=== PATIENT | male | born 1945 | race Caucasian/White ===

== ENCOUNTER 2016-06-12 15:10 | Inpatient (IN) | payer BC, MEDICARE ==
[~2016-06-12] VITALS: Ht 152.4 cm; Wt 70.0 kg
[~2016-06-12 15:10] MED LIST: AMLO10 PO; ATOR40TA16 PO; CARB200T PO; CLON2TAB PO; DONE10TA7 PO; GABA100C4 PO; METO-309 PO; MIRT45TA PO; PANT40TA3 PO; TAMS0.4C4 PO
[2016-06-12] MEDS ORDERED: GABA100C4 PO ×2 (15:27)
[2016-06-12] MEDS ORDERED: ZOLO50TA PO (15:27)
[2016-06-12 20:30] VITALS: BP 168/101; PULSE 85; RESP 17; TEMP 96.7; O2SAT 96
--- NOTE | 2016-06-12 21:35 | HHI.HP ---
[facility] Service [place] [place] [facility] Primary Care Physician Unknown Admission Diagnosis Diagnoses: Chief Complaint: Altered mental status and acute renal failure. Travel History International Travel<30 Days: No Contact w/Intl Traveler <30 Da: No Traveled to Known Affected Are: No History of Present Illness This is a 71-year-old male patient with past medical history which includes depression, BPH, hyperlipidemia, dementia, CAD status post coronary artery bypass graft. Patient is able to speak some Malian but mostly speaks Cypriot and a very poor historian. Initially admitted to psych unit for mood disorder and dementia. We were initially consulted for GI discomfort with nausea which has been going on for approximately 9 months to a year there is no change in this GI discomfort. Unremarkable findings. However today, patient had altered mental status, less responsive, blood work was done and showed acute renal failure. Per EMR charting, patient has not been eating in the last 3-4 days, has not been drinking. During that encounter, patient is awake, alert , response to noxious stimulus, positive response to visual threat. Not cooperative. Not in pain. Patient was then transferred to the hospital for further management. Review of Systems ROS Limitations: Altered Mental Status, Psychotic, Poor Historian Past Family Social History Past Medical History depression, BPH, hyperlipidemia, dementia, CAD status post coronary artery bypass graft Past Surgical History Coronary artery bypass graft there is a transverse right lower abdomen incision patient is unable to recall surgery Reported Medications Last Impressions Head CT 06/13/16 0000 Signed Impressions: Service Date/Time: Monday, June 13, 2016 03:29 - CONCLUSION: Normal examination for acute event. No hemorrhage or edema. Gab Baird MD Allergies: Coded Allergies: No Known Allergies (Unverified , 05/27/16) Family History Denies family medical history including diabetes hypertension or cancer Social History This is a 71-year-old male patient with past medical history which includes depression, BPH, hyperlipidemia, dementia, CAD status post coronary artery bypass graft. Patient is able to speak some Malian but mostly speaks Cypriot and reviewed with computer massage operator and information gathered from computerized chart. Patient does appear somewhat confused is able to describe GI discomfort with nausea which has been going on for approximately 9 months to a year there is no change in this GI discomfort. The pressure noted to be elevated ranging from 153/84-208/110. Hypertension start Norvasc 10 mg daily and clonidine as needed continue monitor vital signs GI discomfort/ nausea Protonix daily and Zofran as needed for nausea/vomiting BPH, hyperlipidemia, CAD and dementia continue patient's home medications these appear stable DVT prophylaxis patient ambulatory Discussed with patient RN and Dr. Redd Thank you for the consultation and for allowing us to participate in the care of this patient. Written by Lisa Owen, acting as scribe for Dr. Spann on 05/29/16 at 14:41. The documentation accurately reflects the work performed [id number] by me on 05/29/16 at 14:41 Physical Exam Physical Exam Not in distress PERRL, pink conjunctiva without injection, anicteric, sunken eyeballs. Appears dry. Nose without bleeding, airway patent Supple neck, no meningeal signs. Normal rate and regular rhythm, no murmurs gallops or rubs appreciated. Poor respiratory effort. Normal bowel sounds, soft, non-tender, nondistended, no guarding. Extremities without clubbing, cyanosis, or edema. No rash of generalized distribution. Awake, cannot evaluate orientation. Positive response to visual threat and noxious stimulus. No obvious cranial nerve deficits, pupils round, reactive to light. Muscle strength testing cannot be examined but arms drop slowly Almost catatonic Assessment and Plan Assessment and Plan This is a 71-year-old male patient with past medical history which includes depression, BPH, hyperlipidemia, dementia, CAD status post coronary artery bypass graft admitted to psych unit for dementia and mood disorder, admitted at the hospital for acute renal failure and altered mental status. Altered mental status-check CT scan of the head. Neurochecks, Acute renal failure-check input and output, start IVF, recheck BMP, urinalysis, CBC, ultrasound of the bladder and kidneys. Hypertension-restart Norvasc, metoprolol and clonidine as needed. Monitor. GI discomfort-Protonix daily, Zofran Tums and simethicone as needed BLE pain consistent with neuropathy-hold gabapentin and tramadol for now. BPH, hyperlipidemia, CAD and dementia continue patient's home medications these appear stable DVT prophylaxis: Lovenox Physician Certification 2 Midnight Certification Type: Admission for Inpatient Services Order for Inpatient Services The services are ordered in accordance with Medicare regulations or non- Medicare payer requirements, as applicable. In the case of services not specified as inpatient-only, they are appropriately provided as inpatient services in accordance with the 2-midnight benchmark. Estimated LOS (days): 2 days is the estimated time the patient will need to remain in the hospital, assuming treatment plan goals are met and no additional complications. Post-Hospital Plan: Other (specify) (psychiatry) Abdulkadir Spann MD Jun 12, 2016 21:35 DVT prophylaxis patient ambulatory Discuss with patient, RN Physician Certification Order for Inpatient Services The services are ordered in accordance with Medicare regulations or non- Medicare payer requirements, as applicable. In the case of services not specified as inpatient-only, they are appropriately provided as inpatient services in accordance with the 2-midnight benchmark. days is the estimated time the patient will need to remain in the hospital, assuming treatment plan goals are met and no additional complications. Abdulkadir Spann MD Jun 12, 2016 21:35
[2016-06-12] MEDS: DONEPEZIL HCL 5 MG TAB PO SCH (21:39)
[2016-06-12] MEDS ORDERED: GABAPENTIN 100 MG CAP PO SCH (21:40)
[2016-06-12] MEDS: METOPROLOL TARTRATE 50 MG TAB PO SCH (21:40)
[2016-06-12] MEDS: ATORVASTATIN 40 MG TAB PO SCH (21:45)
[2016-06-12] MEDS: SODIUM CHLOR 0.9% 1000 ML INJ 1,000 ML IV SCH (22:58)
[2016-06-12 23:00] VITALS: BP 194/110; PULSE 84; RESP 18; TEMP 97; O2SAT 96
[2016-06-12] MEDS: ENALAPRILAT 1.25 MG/ML VIAL IV PUSH PRN (23:21)
[2016-06-13] VITALS: BP 107/69
[2016-06-13 04:00] VITALS: BP 107/59; PULSE 70; RESP 17; TEMP 97.1; O2SAT 95
--- NOTE | 2016-06-13 04:16 | RADRPT ---
EXAM DATE/TIME: 06/13/2016 03:29 [facility] COMPARISON: No previous studies available for comparison. INDICATIONS : Altered mental status today. RADIATION DOSE: 56.35 CTDIvol (mGy) MEDICAL HISTORY : Dementia. Cardiovascular disease SURGICAL HISTORY : CABG ENCOUNTER: Initial ACUITY: 1 day PAIN SCALE: 0/10 LOCATION: cranial TECHNIQUE: Multiple contiguous axial images were obtained of the head. Using automated exposure control and adj ustment of the mA and/or kV according to patient size, radiation dose was kept as low as reasonably a chievable to obtain optimal diagnostic quality images. FINDINGS: CEREBRUM: The ventricles are normal for age. No evidence of midline shift, mass lesion, hemorrhage or acute in farction. No extra-axial fluid collections are seen. There are a few old lacunar strokes in the left external capsule. POSTERIOR FOSSA: The cerebellum and brainstem are intact. The 4th ventricle is midline. The cerebellopontine angle i s unremarkable. EXTRACRANIAL: The visualized portion of the orbits is intact. SKULL: The calvaria is intact. No evidence of skull fracture. CONCLUSION: Normal examination for acute event. No hemorrhage or edema. Gab Baird MD on June 13, 2016 at 4:13 Board Certified Radiologist. This report was verified electronically.
[2016-06-13] MEDS: SODIUM CHLOR 0.9% 1000 ML INJ 1,000 ML IV SCH ×3 (05:38→21:55)
[2016-06-13 08:00] VITALS: BP 130/61; PULSE 69; RESP 16; TEMP 97.2; O2SAT 98
[2016-06-13 08:12] LABS: BICARBONATE 20.7 MEQ/L (21.0-32.0); POTASSIUM 4.3 MEQ/L (3.5-5.1)
[2016-06-13 08:36] LABS: AUTOMATED NEUTROPHIL # 8.7 TH/MM3 (1.8-7.7); BASOPHIL # 0.1 TH/MM3 (0-0.2); BASOPHIL % 0.5 % (0.0-2.0); EOSINOPHIL # 0.1 TH/MM3 (0-0.4); EOSINOPHIL % 0.7 % (0.0-4.0); HEMATOCRIT 46.6 % (39.0-51.0); HEMO FLAGS DIFF FINAL; LYMPH % 9.8 % (9.0-44.0); LYMPHOCYTE # 1.1 TH/MM3 (1.0-4.8); MEAN CELL VOLUME 95.6 FL (80.0-100.0); MEAN CORPUSCULAR HEMOGLOBIN 31.7 PG (27.0-34.0); MEAN CORPUSCULAR HGB CONC 33.1 % (32.0-36.0); MONO % 9.7 % (0.0-8.0); NEUT % 79.3 % (16.0-70.0); PLATELET COUNT 143 TH/MM3 (150-450); RED BLOOD COUNT 4.87 MIL/MM3 (4.50-5.90); RED CELL DISTRIBUTION WIDTH 13.4 % (11.6-17.2); WHITE BLOOD COUNT 10.9 TH/MM3 (4.0-11.0)
[2016-06-13] MEDS: METOPROLOL TARTRATE 50 MG TAB PO SCH ×2 (09:00→21:00)
[2016-06-13] MEDS: PANTOPRAZOLE SOD 40 MG DELAYED RELEASE TAB PO SCH (09:00)
[2016-06-13] MEDS ORDERED: GABAPENTIN 100 MG CAP PO SCH (09:00)
[2016-06-13] MEDS: carBAMazepine 200 MG TAB PO SCH ×3 (09:00→17:03)
--- NOTE | 2016-06-13 10:40 | HHI.PR ---
Subjective Remarks Follow-up for altered mental status and renal failure Still nonresponsive, almost catatonic, no meaningful history can be taken from the patient. Objective Vitals Vital Signs Date Time Temp Pulse Resp B/P Pulse Ox O2 Delivery O2 Flow Rate FiO2 06/13/16 08:00 97.2 69 16 130/61 98 06/13/16 04:00 97.1 70 17 107/59 95 06/13/16 00:00 107/69 06/12/16 23:00 97.0 84 18 194/110 96 06/12/16 20:30 96.7 85 17 168/101 96 I/O 06/12/16 06/12/16 06/12/16 06/13/16 06/13/16 06/13/16 07:00 15:00 23:00 07:00 15:00 23:00 Intake Total 40 ml 875 ml Balance 40 ml 875 ml Intake Oral 40 ml IV Total 875 ml # Voids 1 1 Result Diagram: 06/13/16 0701 06/13/16 0701 Objective Remarks Not in distress PERRL, pink conjunctiva without injection, anicteric, sunken eyeballs. Appears dry. Nose without bleeding, airway patent Supple neck, no meningeal signs. Normal rate and regular rhythm, no murmurs gallops or rubs appreciated. Poor respiratory effort. Normal bowel sounds, soft, non-tender, nondistended, no guarding. Extremities without clubbing, cyanosis, or edema. No rash of generalized distribution. Awake, cannot evaluate orientation. Positive response to visual threat and noxious stimulus. No obvious cranial nerve deficits, pupils round, reactive to light. Muscle strength testing cannot be examined but arms drop slowly Almost catatonic A/P Assessment and Plan This is a 71-year-old male patient with past medical history which includes depression, BPH, hyperlipidemia, dementia, CAD status post coronary artery bypass graft admitted to psych unit for dementia and mood disorder, discharged, admitted at the hospital for acute renal failure and altered mental status. Altered mental status -CT scan of the head unremarkable, check MRI of the head, check EEG, check Tegretol levels, check ammonia. Acute renal failure-continue IVF, increased rate, recheck BMP tomorrow, check CK today, check urinalysis, awaiting ultrasound of the bladder and kidneys, consult nephrology. Likely secondary to hypovolemia from poor oral intake, monitor. Hold gabapentin. Baseline creatinine is around 1.2. Now at 3. Hypertension- continue Norvasc, metoprolol and clonidine as needed. Monitor. GI discomfort-Protonix daily, Zofran Tums and simethicone as needed BLE pain consistent with neuropathy-hold gabapentin and tramadol for now. BPH, hyperlipidemia, CAD and dementia continue patient's home medications these appear stable DVT prophylaxis: Heparin Abdulkadir Spann MD Jun 13, 2016 10:40
[2016-06-13 12:00] VITALS: BP 141/67; PULSE 66; RESP 18; TEMP 97.2; O2SAT 97
[2016-06-13 13:02] LABS: CREATINE KINASE 59 U/L (39-308)
[2016-06-13 13:16] LABS: BLOOD, URINE NEG (NEG); GLUCOSE,URINE NEG (NEG); HYALINE CAST, URINE 20 /lpf (RARE); KETONE, URINE TRACE mg/dL (NEG); MUCUS URINE FEW /lpf (OCC); NITRITE,URINE NEG (NEG); SQUAMOUS EPITHELIAL CELL URINE <1 /hpf (0-5); URINE COLOR YELLOW (YELLW/STRAW)
[2016-06-13 13:18] LABS: COMMENT (UR) CATH-CULT NOT IND; CULTURE IF INDICATED CATH CULTURE NOT IND
--- NOTE | 2016-06-13 13:38 | PD.CONS ---
HPI Service Nephrology Consult Requested By Dr. Spann Reason for Consult Acute renal failure Primary Care Physician Unknown History of Present Illness Patient is a 71-year-old [place] man who speaks no Uzbek, he was admitted to the psychiatric unit and has been doing poorly and altered mental status, he' s not eating and drinking and he has progressive renal failure time of admission his creatinine was 1.16 and is progressively gotten worse to 3.04. Patient is unable to provide any history. Review of Systems ROS Limitations: Clinical Condition Past Family Social History Allergies: Coded Allergies: No Known Allergies (Unverified , 05/27/16) Past Medical History Hypertension Coronary artery disease CABG Hyperlipidemia Dementia Past Surgical History CABG Reported Medications Reported Meds & Active Scripts Active Zoloft (Sertraline HCl) 50 Mg Tab 50 Mg PO HS 0 Days Gabapentin 100 Mg Cap 200 Mg PO HS 0 Days Gabapentin 100 Mg Cap 100 Mg PO BID 0 Days Norvasc (Amlodipine Besylate) 10 Mg Tab 10 Mg PO DAILY 30 Days Pantoprazole (Pantoprazole Sodium) 40 Mg Tab 40 Mg PO DAILY 30 Days Lopressor (Metoprolol Tartrate) 50 Mg Tab 50 Mg PO Q12HR 30 Days Reported Atorvastatin (Atorvastatin Calcium) 40 Mg Tab 40 Mg PO HS Tamsulosin (Tamsulosin HCl) 0.4 Mg Cap 0.4 Mg PO HS Donepezil 10 Mg Tab 10 Mg PO HS Carbamazepine 200 Mg Tab 200 Mg PO TID Active Ordered Medications Current Medications Medications (Trade) Dose Ordered Sig/Geovanni Route Start Time Stop Time Status Last Admin (NS 1000 ml Inj) 1,000 ml @ 150 mls/hr Q6H40M IV 06/12/16 21:30 06/13/16 05:38 (Norvasc) 10 mg DAILY PO 06/13/16 09:00 (Lipitor) 40 mg HS PO 06/12/16 21:45 (TEGretol) 200 mg TID PO 06/13/16 09:00 (Aricept) 10 mg HS PO 06/12/16 21:39 (Neurontin) 100 mg BID PO 06/13/16 09:00 Hold (Neurontin) 200 mg HS PO 06/12/16 21:40 Hold (Lopressor) 50 mg Q12HR PO 06/12/16 21:40 (Protonix) 40 mg DAILY PO 06/13/16 09:00 (Zoloft) 50 mg HS PO 06/13/16 21:00 (Flomax) 0.4 mg HS PO 06/13/16 21:00 (Vasotec Inj) 1.25 mg Q6H PRN IV PUSH 06/12/16 23:15 06/12/16 23:21 Family History Noncontributory Social History Previous history of smoking Physical Exam Vital Signs Vital Signs Date Time Temp Pulse Resp B/P Pulse Ox O2 Delivery O2 Flow Rate FiO2 06/13/16 08:00 97.2 69 16 130/61 98 06/13/16 04:00 97.1 70 17 107/59 95 06/13/16 00:00 107/69 06/12/16 23:00 97.0 84 18 194/110 96 06/12/16 20:30 96.7 85 17 168/101 96 Physical Exam GENERAL: Dehydrated ill-appearing patient. SKIN: Warm and dry. HEAD: Normocephalic. EYES: No scleral icterus. No injection or drainage. NECK: Supple, trachea midline. No JVD or lymphadenopathy. CARDIOVASCULAR: Regular rate and rhythm without murmurs, gallops, or rubs. RESPIRATORY: Breath sounds equal bilaterally. No accessory muscle use. GASTROINTESTINAL: Abdomen soft, non-tender, nondistended. EXTREMITIES: No cyanosis, or edema. NEUROLOGICAL: Awake, unable to provide information or talk Laboratory Laboratory Tests Test 06/13/16 06/13/16 06/13/16 07:01 11:50 12:20 White Blood Count 10.9 Red Blood Count 4.87 Hemoglobin 15.4 Hematocrit 46.6 Mean Corpuscular Volume 95.6 Mean Corpuscular Hemoglobin 31.7 Mean Corpuscular Hemoglobin 33.1 Concent Red Cell Distribution Width 13.4 Platelet Count 143 Mean Platelet Volume 9.7 Neutrophils (%) (Auto) 79.3 Lymphocytes (%) (Auto) 9.8 Monocytes (%) (Auto) 9.7 Eosinophils (%) (Auto) 0.7 Basophils (%) (Auto) 0.5 Neutrophils # (Auto) 8.7 Lymphocytes # (Auto) 1.1 Monocytes # (Auto) 1.1 Eosinophils # (Auto) 0.1 Basophils # (Auto) 0.1 CBC Comment DIFF FINAL Differential Comment Hematology Comments Sodium Level 142 Potassium Level 4.3 Chloride Level 109 Carbon Dioxide Level 20.7 Anion Gap 12 Blood Urea Nitrogen 81 Creatinine 3.04 Estimat Glomerular Filtration 20 Rate Random Glucose 107 Calcium Level 8.9 Ammonia LESS THAN 10 Total Creatine Kinase 59 Carbamazepine (Tegretol) Level LESS THAN 0.5 Urine Color YELLOW Urine Turbidity CLEAR Urine pH 5.0 Urine Specific [place]ems 1.019 Urine Protein TRACE Urine Glucose (UA) NEG Urine Ketones TRACE Urine Occult Blood NEG Urine Nitrite NEG Urine Bilirubin NEG Urine Urobilinogen LESS THAN 2.0 Urine Leukocyte Esterase NEG Urine RBC LESS THAN 1 Urine WBC LESS THAN 1 Urine Squamous Epithelial <1 Cells Urine Hyaline Casts 20 Urine Mucus FEW Microscopic Urinalysis Comment CATH-CULT NOT IND Result Diagram: 06/13/16 0701 06/13/16 0701 Imaging Last Impressions Head CT 06/13/16 0000 Signed Impressions: Service Date/Time: Monday, June 13, 2016 03:29 - CONCLUSION: Normal examination for acute event. No hemorrhage or edema. Gab Baird MD Assessment and Plan Problem List: (1) Acute renal failure Plan: Patient needs hydration and he appears to be dehydrated and unable to take care of himself. MRI of the brain is ordered an ultrasound of the kidney' s kidney function were normal last month and we will continue to monitor with hydration it should improve. (2) Dehydration Plan: Needs IV hydration (3) Dementia, senile with depression Plan: Etiology been worked up MRI has been ordered (4) HTN (hypertension) Plan: Monitor blood pressure while in the hospital (5) Mood disorder Plan: He was seen by psychiatrist Mickey Rivera MD Jun 13, 2016 13:38
[2016-06-13 16:00] VITALS: BP 165/85; PULSE 130; RESP 16; TEMP 97.4; O2SAT 93
[2016-06-13] MEDS ORDERED: HALOPERIDOL LACTATE 5 MG/ML AMP IM ONE ×2 (16:45→22:45)
[2016-06-13 20:00] VITALS: BP 169/75; PULSE 77; RESP 16; TEMP 97; O2SAT 95
[2016-06-13] MEDS: DONEPEZIL HCL 5 MG TAB PO SCH (21:00)
[2016-06-13] MEDS: ATORVASTATIN 40 MG TAB PO SCH (21:00)
[2016-06-13] MEDS: TAMSULOSIN HCL 0.4 MG CAP PO SCH (21:00)
[2016-06-13] MEDS: SERTRALINE HCL 50 MG TAB PO SCH (21:00)
--- NOTE | 2016-06-13 22:02 | RADRPT ---
EXAM DATE/TIME: 06/13/2016 21:21 [facility] COMPARISON: No previous studies available for comparison. INDICATIONS : ARF. MEDICAL HISTORY : BPH. Dementia. CAD. SURGICAL HISTORY : CABG. ENCOUNTER: Initial ACUITY: 3 days PAIN SCORE: Nonresponsive. LOCATION: Bilateral flank MEASUREMENTS: RIGHT KIDNEY: 10.6 x 4.7 x 5.8 cm LEFT KIDNEY: 11.5 x 3.7 x 6.4 cm FINDINGS: RIGHT KIDNEY: The kidney is normal in size and shape. It is mildly echogenic. No hydronephrosis or mass. LEFT KIDNEY: The kidney is normal in size and shape. It is mildly echogenic. No hydronephrosis or mass. BLADDER: Within normal limits given the degree of distension. A Persaud balloon present within the urinary bladd er. CONCLUSION: Mildly echogenic kidneys consistent with underlying medical renal disease. No obstruction. Jl Hernández Jr., MD on June 13, 2016 at 21:59 Board Certified Radiologist. This report was verified electronically.
[2016-06-14] VITALS (11 sets, daily range): BP systolic 146–194; BP diastolic 67–92; PULSE 53–117; RESP 16–20; TEMP 97–98.5; O2SAT 94–97
[2016-06-14] MEDS: SODIUM CHLOR 0.9% 1000 ML INJ 1,000 ML IV SCH ×2 (05:02→22:32)
[2016-06-14] MEDS: ENALAPRILAT 1.25 MG/ML VIAL IV PUSH PRN (08:07)
[2016-06-14 08:30] LABS: BICARBONATE 20.5 MEQ/L (21.0-32.0); POTASSIUM 3.8 MEQ/L (3.5-5.1)
[2016-06-14] MEDS: carBAMazepine 200 MG TAB PO SCH ×3 (09:00→18:00)
[2016-06-14] MEDS: METOPROLOL TARTRATE 50 MG TAB PO SCH ×2 (09:00→22:30)
[2016-06-14] MEDS: PANTOPRAZOLE SOD 40 MG DELAYED RELEASE TAB PO SCH (09:00)
--- NOTE | 2016-06-14 12:40 | HHI.PR ---
Subjective Remarks f/u HTN, ARF patient hypertensive overnight, SBP >200s, still catatonic, very poor historian , still responds to visual threat. Also became combative last night, although made the patient more calm Objective Vitals Vital Signs Date Time Temp Pulse Resp B/P Pulse Ox O2 Delivery O2 Flow Rate FiO2 06/14/16 11:46 178/88 06/14/16 07:50 97.4 71 20 194/92 97 06/14/16 04:00 97.0 70 16 150/67 96 06/14/16 00:00 97.9 99 18 157/68 94 06/13/16 20:00 97.0 77 16 169/75 95 06/13/16 16:00 97.4 130 16 165/85 93 I/O 06/13/16 06/13/16 06/13/16 06/14/16 06/14/16 06/14/16 07:00 15:00 23:00 07:00 15:00 23:00 Intake Total 875 ml 1134 ml 1025 ml 1000 ml Output Total 600 ml 350 ml 500 ml Balance 875 ml 534 ml 675 ml 500 ml Intake Oral 25 ml 0 ml IV Total 875 ml 1134 ml 1000 ml 1000 ml Output Urine Total 600 ml 350 ml 500 ml # Voids 1 # Bowel Movements 0 0 Result Diagram: 06/13/16 0701 06/14/16 0703 Objective Remarks Not in distress PERRL, pink conjunctiva without injection, anicteric, sunken eyeballs. Appears dry. Nose without bleeding, airway patent Supple neck, no meningeal signs. Normal rate and regular rhythm, no murmurs gallops or rubs appreciated. Poor respiratory effort. Normal bowel sounds, soft, non-tender, nondistended, no guarding. Extremities without clubbing, cyanosis, or edema. No rash of generalized distribution. Awake, cannot evaluate orientation. Positive response to visual threat and noxious stimulus. No obvious cranial nerve deficits, pupils round, reactive to light. Muscle strength testing cannot be examined but arms drop slowly Almost catatonic A/P Assessment and Plan This is a 71-year-old male patient with past medical history which includes depression, BPH, hyperlipidemia, dementia, CAD status post coronary artery bypass graft admitted to psych unit for dementia and mood disorder, discharged, admitted at the hospital for acute renal failure and altered mental status. Altered mental status -CT scan of the head unremarkable, check MRI of the head, check EEG, these are pending, terbutaline will start low, will load with Tegretol. Ammonia is normal. Acute renal failure-continue IVF, better, decreased IVF rate, recheck BMP tomorrow, CK urinalysis within normal limits. Ultrasound of the kidney showed echogenic kidneys suggestive of medical renal disease. Nephrology following. Agreed with diagnosis. Hypokalemia likely secondary to poor oral intake. Hold gabapentin. Baseline creatinine is around 1.2. 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 We 'll give hydralazine IV, transferred to [facility], nicardipine drip. Mood disorder-consult psychiatry, Haldol when necessary. GI discomfort-Protonix daily, Zofran Tums and simethicone as needed BLE pain consistent with neuropathy-hold gabapentin and tramadol for now. BPH, hyperlipidemia, CAD and dementia continue patient's home medications these appear stable DVT prophylaxis: Heparin Abdulkadir Spann MD Jun 14, 2016 12:40
[2016-06-14] MEDS ORDERED: LORazepam 2 MG/ML VIAL IV PUSH PRN (12:45)
[2016-06-14] MEDS: hydrALAZINE HCL 20 MG/ML VIAL IV PUSH PRN (13:49)
[2016-06-14] MEDS: niCARdipine INJ 25 MG in SODIUM CHLOR 0.9% 250 ML INJ 250 ML IV SCH ×4 (13:50→22:31)
--- NOTE | 2016-06-14 15:45 | HHI.NPPN ---
Subjective History of Present Illness 71 year old he refuses eating and do not take medication Became Hypertensive, he is not talking catatonic Objective Data Data 06/13/16 06/14/16 19:00 07:00 Intake Total 1134 ml 2025 ml Output Total 600 ml 850 ml Balance 534 ml 1175 ml Intake Oral 25 ml IV Total 1134 ml 2000 ml Output Urine Total 600 ml 850 ml # Bowel Movements 0 Vital Signs Date Time Temp Pulse Resp B/P Pulse Ox O2 Delivery O2 Flow Rate FiO2 06/14/16 11:50 97.7 68 20 176/82 96 06/14/16 11:46 178/88 06/14/16 07:50 97.4 71 20 194/92 97 06/14/16 04:00 97.0 70 16 150/67 96 06/14/16 00:00 97.9 99 18 157/68 94 06/13/16 20:00 97.0 77 16 169/75 95 06/13/16 16:00 97.4 130 16 165/85 93 -: 06/13/16 0701 06/14/16 0703 Physical Exam General Appearance: Well Developed Neck Neck Exam: Neck Supple Pulmonary Resp Exam: Clear Bilaterally Cardiology CV Exam: Regular, Normal Sinus Rhythm Gastrointestinal/Abdomen GI Exam: Soft, Non-Tender, Bowel Sounds Present Extremeties Extremities Exam: No Edema Assessment/Plan Problem List: (1) Acute renal failure Plan: Patient is on hydration and Cr declined to 1.38 and unable to take care of himself. Cardene drip started as not taking oral medications US kidney Mildly echogenic kidney normal for a Patient with hypertension and his age NGT will be attempted (2) Dehydration Plan: Needs IV hydration (3) Dementia, senile with depression Plan: Etiology been worked up CT scan head negative (4) HTN (hypertension) Plan: on Cardene need NGT Monitor blood pressure while in the hospital (5) Mood disorder Plan: He was seen by psychiatrist Mickey Rivera MD Jun 14, 2016 15:45
--- NOTE | 2016-06-14 19:34 | MG ---
cc: REBA WILLIAMSON Lab No: Date: Age: Sex: M Race: ELECTROENCEPHALOGRAM NUMBER [id number] INTRODUCTION A 71-year-old man. Hyperventilation not performed. Less responsive. Haldol. DESCRIPTION A diffuse 6-7 Hz rhythm is noted to 60 microvolts. Right temporal muscle artifact is seen. At times there is a lot of muscle artifact which makes interpretation difficult. Bottom jaw was quivering. A lot of mouth movement. Some small sharps appear over the right posterior temporal head region at epoch 85 on the bipolar montage and then he has some eye fluttering. Photic stimulation was performed without significant posterior driving. He is noted to fall asleep and snore but does not reach stage II sleep. IMPRESSION There may possibly be a seizure focus over the right central, right temporal head region at epoch 85. A lesion there should be ruled out. Clinical correlation is needed. MD VIKTORIA Sweet/MARIE /6:48 PM /7:27 PM
[2016-06-14] MEDS: ATORVASTATIN 40 MG TAB PO SCH (22:30)
[2016-06-14] MEDS: DONEPEZIL HCL 5 MG TAB PO SCH (22:31)
[2016-06-14] MEDS: TAMSULOSIN HCL 0.4 MG CAP PO SCH (22:31)
[2016-06-14] MEDS ORDERED: ARTIFICIAL TEARS OPTH SOLN 15 ML BTL EACH EYE PRN (23:15)
[2016-06-15] VITALS (20 sets, daily range): BP systolic 123–160; BP diastolic 62–84; PULSE 68–150; RESP 18–20; TEMP 95.1–98.8; O2SAT 88–99
[2016-06-15] MEDS: hydrALAZINE HCL 20 MG/ML VIAL IV PUSH PRN (03:26)
[2016-06-15] MEDS: ENALAPRILAT 1.25 MG/ML VIAL IV PUSH PRN (04:52)
[2016-06-15 05:26] LABS: POTASSIUM 3.9 MEQ/L (3.5-5.1)
[2016-06-15] MEDS ORDERED: FUROSEMIDE 40 MG/4 ML VIAL IV PUSH ONE (08:00)
--- NOTE | 2016-06-15 08:34 | RADRPT ---
EXAM DATE/TIME: 06/15/2016 07:47 [facility] COMPARISON: No previous studies available for comparison. INDICATIONS : Shortness of breath. MEDICAL HISTORY : None. SURGICAL HISTORY : None. ENCOUNTER: Initial ACUITY: 3 days PAIN SCORE: Non-responsive. LOCATION: chest FINDINGS: There is a focal infiltrate in the left lung base. The right lung is clear. There are no pleural effu sions or pulmonary edema. The heart size is within normal limits. There is evidence of previous cardi othoracic surgery. The bony structures are grossly intact. CONCLUSION: Left lower lung infiltrate. Cricket Perez MD on June 15, 2016 at 8:31 Board Certified Radiologist. This report was verified electronically.
[2016-06-15] MEDS: PANTOPRAZOLE SOD 40 MG DELAYED RELEASE TAB PO SCH (09:00)
[2016-06-15] MEDS: NYSTATIN SUSP 500,000 U/5 ML CUP SWISH-SWAL SCH ×4 (09:00→21:17)
[2016-06-15] MEDS: carBAMazepine 200 MG TAB PO SCH ×3 (09:00→17:16)
[2016-06-15] MEDS ORDERED: Vancomycin Consult Pharmacy 1 EA OTHER SCH (09:30)
[2016-06-15] MEDS: PIPERACIL-TAZO 3.375 GM PREMIX 50 ML IV SCH ×3 (09:50→21:06)
[2016-06-15] MEDS: HALOPERIDOL LACTATE 5 MG/ML AMP IM PRN (10:13)
[2016-06-15] MEDS ORDERED: RESP: ALBUTEROL 2.5 MG/IPRATROPIUM 0.5 MG NEB (PRN) NEB (11:30)
--- NOTE | 2016-06-15 11:33 | HHI.PR ---
Subjective Remarks Follow-up on hypertension, altered mental status Feeding tube insertion attempted last night but was not able to. Patient might try to take his medications. No overnight events. Mental status is a little better better, not catatonic today but still does not follow any commands, appears very confused. Had an episode of desaturation and needed to be placed on oxygen. Poor historian Objective Vitals Vital Signs Date Time Temp Pulse Resp B/P Pulse Ox O2 Delivery O2 Flow Rate FiO2 06/15/16 09:06 96 Nasal Cannula 6.00 06/15/16 07:00 88 Nasal Cannula 5.00 06/15/16 06:45 90 Nasal Cannula 6.00 06/15/16 06:30 89 Nasal Cannula 6.00 06/15/16 06:14 88 Nasal Cannula 4.00 06/15/16 06:00 86 Room Air 06/15/16 04:00 91 Room Air 06/15/16 04:00 95.1 91 18 155/71 91 06/15/16 03:00 80 06/15/16 00:00 94 Room Air 06/15/16 00:00 98.8 70 18 123/62 91 06/14/16 23:00 100 06/14/16 20:00 95 Room Air 06/14/16 20:00 98.5 97 18 146/68 97 06/14/16 19:00 117 06/14/16 18:00 110 06/14/16 16:00 97.2 107 20 146/67 94 06/14/16 16:00 107 06/14/16 13:25 53 06/14/16 13:25 97.5 53 20 179/86 96 06/14/16 11:50 97.7 68 20 176/82 96 06/14/16 11:46 178/88 I/O 06/14/16 06/14/16 06/14/16 06/15/16 06/15/16 06/15/16 07:00 15:00 23:00 07:00 15:00 23:00 Intake Total 1000 ml 2008 ml 1885 ml Output Total 500 ml 800 ml 750 ml 1200 ml Balance 500 ml -800 ml 1258 ml 685 ml Intake Oral 0 ml 0 ml 25 ml IV Total 1000 ml 2008 ml 1860 ml Output Urine Total 500 ml 800 ml 750 ml 1200 ml # Bowel Movements 0 0 0 Result Diagram: 06/13/16 0701 06/15/16 0456 Imaging Last Impressions Chest X-Ray 06/15/16 0000 Signed Impressions: Service Date/Time: Wednesday, June 15, 2016 07:47 - CONCLUSION: Left lower lung infiltrate. Cricket Perez MD Renal Ultrasound 06/13/16 0000 Signed Impressions: Service Date/Time: Monday, June 13, 2016 21:21 - CONCLUSION: Mildly echogenic kidneys consistent with underlying medical renal disease. No obstruction. Jl Hernández Jr., MD Head CT 06/13/16 0000 Signed Impressions: Service Date/Time: Monday, June 13, 2016 03:29 - CONCLUSION: Normal examination for acute event. No hemorrhage or edema. Gab Baird MD Objective Remarks Not in distress PERRL, pink conjunctiva without injection, anicteric Nose without bleeding, airway patent Supple neck, no meningeal signs. Tachycardic, regular rhythm, no murmurs. Poor respiratory effort. Very audible rhonchi, occasional wheezing, no crackles. Normal bowel sounds, soft, non-tender, nondistended, no guarding. Extremities without clubbing, cyanosis, or edema. No rash of generalized distribution. Awake, cannot evaluate orientation. Not catatonic today. Moves extremities spontaneously. Does not follow any commands. No obvious cranial nerve deficits , pupils round, reactive to light. A/P Assessment and Plan This is a 71-year-old male patient with past medical history which includes depression, BPH, hyperlipidemia, dementia, CAD status post coronary artery bypass graft admitted to psych unit for dementia and mood disorder, transferred to the hospital for acute renal failure and altered mental status. Altered mental status -CT scan of the head unremarkable, check MRI of the head, still not done, EEG showed possible epileptiform focus in the right central and right temporal area. Restarted Tegretol, consult neurology. Ammonia is normal. Check Tegretol levels. Acute renal failure- resolving, creatinine is better, recheck BMP tomorrow, CK urinalysis within normal limits. Ultrasound of the kidney showed echogenic kidneys suggestive of medical renal disease. Nephrology following. Agreed with diagnosis. Hypokalemia likely secondary to poor oral intake. Hold gabapentin. Baseline creatinine is around 1.2. Hospital-acquired pneumonia versus aspiration pneumonia-patient had an episode of desaturation, chest x-ray personally reviewed showed left lower lobe infiltrate. Keep on oxygen, start DuoNeb's, start vancomycin and Zosyn, possible aspiration. Sinus tachycardia-likely secondary to withdrawal from metoprolol versus agitation, EKG personally reviewed showed sinus tachycardia, continue Cardene drip for now. Continue metoprolol. 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 Patient however has not been taking his medications because of catatonic state. Took metoprolol and Norvasc today. Continue Cardizem drip for now, wean if possible. Hypertensive urgency likely secondary to noncompliance. Mood disorder-consult psychiatry, Haldol when necessary. Awaiting input from psychiatry, Haldol as needed. GI discomfort-Protonix daily, Zofran Tums and simethicone as needed BLE pain consistent with neuropathy-hold gabapentin and tramadol for now until mental status is better and one renal failure resolves. BPH, hyperlipidemia, CAD and dementia continue patient's home medications these appear stable Hypernatremia-switch IVF to half-normal saline. DVT prophylaxis: Heparin Abdulkadir Spann MD Jun 15, 2016 11:33
[2016-06-15] MEDS: DEXT 5%-NACL 0.45% 1000 ML INJ 1,000 ML IV SCH (11:45)
--- NOTE | 2016-06-15 12:45 | PQ ---
Physician Query Response Document PATIENT: ABBY BENNETT : 1945 ADMIT DATE: 06/12/2016 3:10 PM DISCH DATE: RESPONDING PROVIDER #: servando QUERY TEXT: Clarification of Clinical Diagnostic Findings Please clarify documentation or clinical relevance for the clinical / diagnostic findings. IN ORDER T O PROPERLY CODE THIS CHART, WE ASK YOUR ASSISTANCE IN CLARIFIYING THE DOCUMENTATION OF HOSPITAL AQUIR ED PNEUMONIA VS ASPIRATION PNEUMONIA. SUCH : 1) HOSPITAL AQUIRED PNEUMONIA 2) ASPIRATION PNEUMONIA 3) PNEUMONIA, UNSPECIFIED 4) OTHER, PLEASE EXPLAIN The patient's Clinical Indicators include: PER PROGRESS NOTE 06/15/16: Hospital-acquired pneumonia versus aspiration pneumonia-patient had an episode of desaturation, chest x-ray personally reviewed showed left lower lobe infiltrate. Keep on oxygen, start DuoNeb's, start vancomycin and Zosyn, possible aspiration. Query created by: Che Newell on 06/15/2016 12:14 PM RESPONSE TEXT: Too early to tell right now. Query should come in a few days later. Electronically signed by: Abdulkadir Spann MD 06/15/2016 12:41 PM
--- NOTE | 2016-06-15 13:06 | PD.CONS ---
Provisional Diagnosis Admission Date Jun 12, 2016 at 15:10 History of Present Illness Service Psychiatry Consult Requested By Primary Care Physician Unknown Past Family Social History Coded Allergies: No Known Allergies (Unverified , 05/27/16) Active Scripts Sertraline (Zoloft)50 Mg Tab50 Mg PO HS 0 Days Ref 0 Prov:Russ Donovan MD 06/12/16 Gabapentin 100 Mg [id number] Mg PO HS 0 Days Ref 0 Prov:Russ Donovan MD 06/12/16 Gabapentin 100 Mg [id number] Mg PO BID 0 Days Ref 0 Prov:Russ Donovan MD 06/12/16 Amlodipine (Norvasc)10 Mg Tab10 Mg PO DAILY 30 Days Ref 0 Prov:Lisa Owen 06/09/16 Pantoprazole 40 Mg Tab40 Mg PO DAILY 30 Days Ref 0 Prov:Lisa Owen 06/09/16 Metoprolol Tartrate (Lopressor)50 Mg Tab50 Mg PO Q12HR 30 Days Ref 0 Prov:Lisa Owen 06/09/16 Reported Medications Atorvastatin 40 Mg Tab40 Mg PO HS #30 TAB Ref 0 05/27/16 Tamsulosin 0.4 Mg Cap0.4 Mg PO HS #30 CAP Ref 0 05/27/16 Donepezil 10 Mg Tab10 Mg PO HS #30 TAB Ref 0 05/27/16 Carbamazepine 200 Mg [id number] Mg PO TID #60 TAB Ref 0 05/27/16 Discontinued Reported Medications Clonazepam 2 Mg Tab2 Mg PO TID #90 TAB Ref 0 05/27/16 Mirtazapine 45 Mg Tab45 Mg PO HS #30 TAB Ref 0 05/27/16 Gabapentin 100 Mg Lyf881 Mg PO TID #90 CAP Ref 0 05/27/16 Current Medications Medications (Trade) Dose Ordered Sig/Geovanni Route Start Time Stop Time Status Last Admin (Norvasc) 10 mg DAILY PO 06/13/16 09:00 (Lipitor) 40 mg HS PO 06/12/16 21:45 06/14/16 22:30 (TEGretol) 200 mg TID PO 06/13/16 09:00 (Aricept) 10 mg HS PO 06/12/16 21:39 06/14/16 22:31 (Neurontin) 100 mg BID PO 06/13/16 09:00 Hold (Neurontin) 200 mg HS PO 06/12/16 21:40 Hold (Lopressor) 50 mg Q12HR PO 06/12/16 21:40 06/14/16 22:30 (Protonix) 40 mg DAILY PO 06/13/16 09:00 (Zoloft) 50 mg HS PO 06/13/16 21:00 (Flomax) 0.4 mg HS PO 06/13/16 21:00 06/14/16 22:31 (Vasotec Inj) 1.25 mg Q6H PRN IV PUSH 06/12/16 23:15 06/15/16 04:52 Hydralazine HCl 10 mg 10 mg Q4H PRN IV PUSH 06/14/16 09:30 06/15/16 03:26 (Cardene Inj/NS 250 ml Inj) 260 ml @ 0 mls/hr TITRATE IV 06/14/16 11:00 06/14/16 22:31 (Haldol Inj) 2 mg Q6H PRN IM 06/14/16 12:45 06/15/16 10:13 (Mycostatin Liq) 5 ml QID SWISH-SWAL 06/15/16 09:00 Artificial Tears 1 drop 1 drop Q4H PRN EACH EYE 06/14/16 23:15 Vancomycin HCl 1250 mg/Sodium Chloride 262.5 ml @ 262.5 mls/ hr Q18H IV 06/15/16 12:00 Pharmacy Profile Note 0 ml @ 0 mls/hr UNSCH OTHER 06/15/16 09:30 (Zosyn 3.375 Gm Premix) 50 ml @ 100 mls/hr Q6H IV 06/15/16 10:00 06/15/16 09:50 Miscellaneous Information SPECIFIC LAB TO BE DRAWN:VANCOMYCIN TROUGH DATE TO... ONCE ONCE XX 06/17/16 17:45 06/17/16 17:46 (D5W-12 NS 1000 ml Inj) 1,000 ml @ 75 mls/hr Q36H89C IV 06/15/16 11:30 06/15/16 11:45 Physical Exam Vital Signs Vital Signs Date Time Temp Pulse Resp B/P Pulse Ox O2 Delivery O2 Flow Rate FiO2 06/15/16 09:06 96 Nasal Cannula 6.00 06/15/16 04:00 95.1 91 18 155/71 I/O 06/14/16 06/14/16 06/14/16 07:59 15:59 23:59 Intake Total 1000 ml 2008 ml Output Total 500 ml 800 ml 750 ml Balance 500 ml -800 ml 1258 ml Assessment & Plan Problem List: (1) Mood disorder Assessment & Plan: Patient was visited for psychiatric evaluation, but was out in having a test. He will be revisited later today or tomorrow morning, for question please contact Dr. Feldman, ICD Code: F39 Assessment & Plan Estimated LOS: Daniel Feldman MD Jun 15, 2016 13:06
--- NOTE | 2016-06-15 13:12 | MB ---
cc: SATYA LYNNE M.D. DATE OF CONSULTATION: 06/15/2016 DATE OF : 1945 REASON FOR CONSULTATION Possible seizures. HISTORY OF PRESENT ILLNESS The patient is a 71-year-old man with a history of depression, BPH, hyperlipidemia, dementia, coronary artery disease post bypass graft in the past. He originally speaks Yakut but can speak Romanian. He was admitted to the psych unit for mood disorder due to senile dementia. He was brought to ICU for uncontrolled hypertension needing IV medication. The patient is not very cooperative with talking. He was also given some Haldol. I am told he has been moving everything equally, would not take anything p.o. and would not allow an NG tube. I believe the hospitalist placed him on some carbamazepine. He had an EEG yesterday that showed possible focus of seizure in the right temporal region at epoch 85. There is no reported history of epilepsy. PAST MEDICAL HISTORY As stated. PAST SURGICAL HISTORY Coronary artery bypass graft. ALLERGIES None reported. FAMILY HISTORY Negative. PHYSICAL EXAMINATION VITAL SIGNS: Temperature 95.1, pulse 91, respiratory rate 18, blood pressure 155/71, satting at 91% room air. NEUROLOGIC: He is awake. He is alert. He looks towards the examiner. His pupils are reactive. His extraocular muscles are normal. Face is symmetrical. Speech, he answers yes and no, but difficult to assess otherwise. Motor-kim he legal executive assistant equally but does not follow commands for lifting his arms and legs. Toes are neutral. DTRs are 1+. Gait is unable to be assessed at this time. LABORATORY His labs are reviewed. Platelets are 143,000. Sodium 150, BUN 25, creatinine 1.05, GFR 70. BNP 133. Toxicology is negative. His Tegretol level on the was 9.4, however, on 06/13/2016 it was less than 0.05; again, he is refusing to take his medications. IMAGING CT brain: Normal exam. No acute event found. EEG As stated. One epoch with a seizure for possible focus. IMPRESSION Altered mental status, likely due to depression, however, questionable focus of seizure. RECOMMENDATIONS I would get another EEG for better delineation, if this is a true focus or not. Get an MRI to look for any structural lesions. Certainly if psychiatry sees him and they have no contraindication, we could start him on some Depakote ER 500 mg at bedtime instead of p.o. Tegretol. Hopefully, he will not pull out any IVs. At this point in time will get the repeat EEG, get the MRI, and make further recommendations if needed. MD AVIVA Chan/KORI /12:43 PM /12:57 PM
[2016-06-15] MEDS: niCARdipine INJ 25 MG in SODIUM CHLOR 0.9% 250 ML INJ 250 ML IV SCH (13:17)
[2016-06-15] MEDS: METOPROLOL TARTRATE 50 MG TAB PO SCH ×2 (13:24→21:17)
[2016-06-15] MEDS: VANCOMYCIN INJ 1,250 MG in SODIUM CHLOR 0.9% 250 ML INJ 250 ML IV SCH (13:47)
--- NOTE | 2016-06-15 15:07 | HHI.NPPN ---
Subjective History of Present Illness 71 year old he refuses eating and do not take medication Became Hypertensive, he is not talking catatonic Objective Data Data 06/14/16 06/15/16 19:00 07:00 Intake Total 2008 ml 1885 ml Output Total 1550 ml 1200 ml Balance 458 ml 685 ml Intake Oral 0 ml 25 ml IV Total 2008 ml 1860 ml Output Urine Total 1550 ml 1200 ml # Bowel Movements 0 0 Vital Signs Date Time Temp Pulse Resp B/P Pulse Ox O2 Delivery O2 Flow Rate FiO2 06/15/16 09:06 96 Nasal Cannula 6.00 06/15/16 07:00 88 Nasal Cannula 5.00 06/15/16 06:45 90 Nasal Cannula 6.00 06/15/16 06:30 89 Nasal Cannula 6.00 06/15/16 06:14 88 Nasal Cannula 4.00 06/15/16 06:00 86 Room Air 06/15/16 04:00 91 Room Air 06/15/16 04:00 95.1 91 18 155/71 91 06/15/16 03:00 80 06/15/16 00:00 94 Room Air 06/15/16 00:00 98.8 70 18 123/62 91 06/14/16 23:00 100 06/14/16 20:00 95 Room Air 06/14/16 20:00 98.5 97 18 146/68 97 06/14/16 19:00 117 06/14/16 18:00 110 06/14/16 16:00 97.2 107 20 146/67 94 06/14/16 16:00 107 -: 06/13/16 0701 06/15/16 0456 Physical Exam General Appearance: Well Developed Neck Neck Exam: Neck Supple Pulmonary Resp Exam: Clear Bilaterally Cardiology CV Exam: Regular, Normal Sinus Rhythm Gastrointestinal/Abdomen GI Exam: Soft, Non-Tender, Bowel Sounds Present Extremeties Extremities Exam: No Edema Assessment/Plan Problem List: (1) Acute renal failure Plan: Patient is on hydration and Cr declined to 1.05 resolved ARF and unable to take care of himself. BP better on oral medications NGT attempted Need water intake at Na 150 agree with decreasing to 1/2 NS I will sign off (2) Dehydration Plan: Needs oral hydration (3) Dementia, senile with depression Plan: Etiology been worked up CT scan head negative (4) HTN (hypertension) Plan: Monitor blood pressure while in the hospital (5) Mood disorder Plan: He was seen by psychiatrist Problem Qualifiers (1) Acute renal failure: Qualified Code: N17.9 - Acute renal failure, unspecified acute renal failure type Mickey Rivera MD Jun 15, 2016 15:07
[2016-06-15] MEDS: RESP: ALBUTEROL 2.5 MG/IPRATROPIUM 0.5 MG NEB (SCH) NEB ×2 (15:40→20:04)
[2016-06-15] MEDS: DONEPEZIL HCL 5 MG TAB PO SCH (21:17)
[2016-06-15] MEDS: TAMSULOSIN HCL 0.4 MG CAP PO SCH (21:17)
[2016-06-15] MEDS: ATORVASTATIN 40 MG TAB PO SCH (21:17)
[2016-06-15] MEDS: SERTRALINE HCL 50 MG TAB PO SCH (21:54)
--- NOTE | 2016-06-15 23:32 | EKG ---
Date Performed: 06/15/2016 Time Performed: 10:51:40 PTAGE: 71 years EKG: Supraventricular tachycardia Left axis deviation RBBB Inferior and lateral ST elevation sug gests early repolarization Abnormal ECG NO PREVIOUS TRACING DOCTOR: Cruz Roman Interpretating Date/Time 06/15/2016 23:32:08
[2016-06-16] VITALS (20 sets, daily range): BP systolic 124–156; BP diastolic 65–84; PULSE 60–101; RESP 18–24; TEMP 97.9–98.2; O2SAT 93–99
[2016-06-16] MEDS: PIPERACIL-TAZO 3.375 GM PREMIX 50 ML IV SCH ×4 (03:57→22:41)
[2016-06-16] MEDS: DEXT 5%-NACL 0.45% 1000 ML INJ 1,000 ML IV SCH ×3 (03:57→20:50)
[2016-06-16 05:04] LABS: AUTOMATED NEUTROPHIL # 8.2 TH/MM3 (1.8-7.7); BASOPHIL % 0.5 % (0.0-2.0); EOSINOPHIL # 0.1 TH/MM3 (0-0.4); EOSINOPHIL % 1.5 % (0.0-4.0); HEMATOCRIT 40.3 % (39.0-51.0); HEMO FLAGS DIFF FINAL; LYMPH % 7.3 % (9.0-44.0); LYMPHOCYTE # 0.7 TH/MM3 (1.0-4.8); MEAN CELL VOLUME 91.5 FL (80.0-100.0); MONO % 10.3 % (0.0-8.0); NEUT % 80.4 % (16.0-70.0); PLATELET COUNT 143 TH/MM3 (150-450); RED CELL DISTRIBUTION WIDTH 13.1 % (11.6-17.2); WHITE BLOOD COUNT 10.2 TH/MM3 (4.0-11.0)
[2016-06-16 05:21] LABS: ANION GAP 13 MEQ/L (5-15); BICARBONATE 18.3 MEQ/L (21.0-32.0); BLOOD UREA NITROGEN 20 MG/DL (7-18); CHLORIDE 117 MEQ/L (98-107); GLOMERULAR FILTRATION RATE 54 ML/MIN (>89); POTASSIUM 3.4 MEQ/L (3.5-5.1); SODIUM (NA) 148 MEQ/L (136-145)
[2016-06-16] MEDS: VANCOMYCIN INJ 1,250 MG in SODIUM CHLOR 0.9% 250 ML INJ 250 ML IV SCH (06:35)
[2016-06-16] MEDS: RESP: ALBUTEROL 2.5 MG/IPRATROPIUM 0.5 MG NEB (SCH) NEB ×3 (07:20→19:50)
--- NOTE | 2016-06-16 09:58 | MG ---
cc: JOHN MURILLO Lab No: 17-9 Date: 06/15/2016 Age: Sex: M Race: TECHNIQUE 17 channel EEG. DESCRIPTION: The background rhythm is a symmetrical alpha rhythm, frequency is about 8 Hz, amplitude 20 microvolts. There is some muscle artifact identified, some eye movement artifact is identified as well in the frontal leads. There are no epileptiform features. No lateralizing features are identified. Photic stimulation was done in a stepwise fashion with a fairly symmetric driving response. During photic stimulation there was some sharp activity identified in the right temporal lobe. INTERPRETATION Some sharp activity was identified in the right temporal lobe during photic stimulation which is suggestive of a convulsive tendency. MD LENIN Hill/TLL /9:37 AM /9:51 AM
[2016-06-16] MEDS: METOPROLOL TARTRATE 50 MG TAB PO SCH ×2 (10:06→20:51)
[2016-06-16] MEDS: PANTOPRAZOLE SOD 40 MG DELAYED RELEASE TAB PO SCH (10:09)
[2016-06-16] MEDS: carBAMazepine 200 MG TAB PO SCH ×4 (10:09→20:51)
[2016-06-16] MEDS: NYSTATIN SUSP 500,000 U/5 ML CUP SWISH-SWAL SCH ×4 (10:10→20:51)
[2016-06-16] MEDS: HALOPERIDOL LACTATE 5 MG/ML AMP IM PRN (10:17)
[2016-06-16] MEDS ORDERED: GADODIAMIDE PF 287 MG/ML 5 ML VIAL (for RAD MRI) IV ONE (11:01)
--- NOTE | 2016-06-16 11:45 | RADRPT ---
EXAM DATE/TIME: 06/16/2016 10:35 [facility] COMPARISON: No previous studies available for comparison. INDICATIONS : Altered mental status. CONTRAST: 14 cc Omniscan (gadodiamide) IV MEDICAL HISTORY : Hypertension. Hepatitis C. Seizures. SURGICAL HISTORY : Tonsillectomy. CABG Hiatal hernia. ENCOUNTER: Subsequent ACUITY: 4-6 days PAIN SCORE: 0/10 LOCATION: head. TECHNIQUE: Multiplanar, multisequence MRI of the brain was performed both prior to and following the administrat ion of paramagnetic contrast. FINDINGS: There are moderate chronic ischemic appearing changes in the periventricular white matter. No recent infarct is identified in the diffusion weighted images. There is some susceptibility artifact in the right parietal lobe possibly related to prior trauma or hemosiderin deposition from prior petechial h emorrhage. No mass effect or midline shift. No hydrocephalus. No abnormal enhancing lesions are seen postcontras t. CONCLUSION: 1. Moderate chronic ischemic changes in the periventricular white matter. No recent infarct. No mass effect or shift. Sixto Johnston MD on June 16, 2016 at 11:38 Board Certified Radiologist. This report was verified electronically.
[2016-06-16] MEDS ORDERED: LORazepam 2 MG/ML VIAL IV PUSH STA (12:57)
--- NOTE | 2016-06-16 13:22 | PD.CONS ---
Provisional Diagnosis Admission Date Jun 12, 2016 at 15:10 [place] I. Delirium with catatonic features History of Present Illness Service Psychiatry Consult Requested By Primary Care Physician Unknown HPI This is a 71-year-old [place] man, with psychiatric history of dementia and depression, was inpatient in psychiatric, he is on zoloft 50 mg, past medical history which includes depression, BPH, hyperlipidemia, dementia, CAD status post coronary artery bypass graft. Patient is able to speak some Georgian but mostly speaks [place]ian and a very poor historian. Initially admitted to psych unit for mood disorder and dementia. We were initially consulted for GI discomfort with nausea which has been going on for approximately 9 months to a year there is no change in this GI discomfort. Patient was diagnosed with acute renal failure, and pneumonia, still in treatment for this condition. On psychiatric evaluation today patient is obtunded, with marked mutism and negativism, pronounced blocking thought and speech latency. He also seems to be somewhat rigid and stiff. He is unable to cooperate with psychiatric assessment. He answers limitedly to some of our question, but is unable to establish a conversation and provide meaningful information. Review of Systems ROS Limitations: Uncooperative Past Family Social History Coded Allergies: No Known Allergies (Unverified , 05/27/16) Active Scripts Sertraline (Zoloft)50 Mg Tab50 Mg PO HS 0 Days Ref 0 Prov:Russ Donovan MD 06/12/16 Gabapentin 100 Mg Sub636 Mg PO HS 0 Days Ref 0 Prov:Russ Donovan MD 06/12/16 Gabapentin 100 Mg Gzn151 Mg PO BID 0 Days Ref 0 Prov:Russ Donovan MD 06/12/16 Amlodipine (Norvasc)10 Mg Tab10 Mg PO DAILY 30 Days Ref 0 Prov:Lisa Owen 06/09/16 Pantoprazole 40 Mg Tab40 Mg PO DAILY 30 Days Ref 0 Prov:Lisa Owen 06/09/16 Metoprolol Tartrate (Lopressor)50 Mg Tab50 Mg PO Q12HR 30 Days Ref 0 Prov:Lisa Owen 06/09/16 Reported Medications Atorvastatin 40 Mg Tab40 Mg PO HS #30 TAB Ref 0 05/27/16 Tamsulosin 0.4 Mg Cap0.4 Mg PO HS #30 CAP Ref 0 05/27/16 Donepezil 10 Mg Tab10 Mg PO HS #30 TAB Ref 0 05/27/16 Carbamazepine 200 Mg Ije928 Mg PO TID #60 TAB Ref 0 05/27/16 Discontinued Reported Medications Clonazepam 2 Mg Tab2 Mg PO TID #90 TAB Ref 0 05/27/16 Mirtazapine 45 Mg Tab45 Mg PO HS #30 TAB Ref 0 05/27/16 Gabapentin 100 Mg Uxt655 Mg PO TID #90 CAP Ref 0 05/27/16 Current Medications Medications (Trade) Dose Ordered Sig/Geovanni Route Start Time Stop Time Status Last Admin (Norvasc) 10 mg DAILY PO 06/13/16 09:00 06/16/16 10:06 (Lipitor) 40 mg HS PO 06/12/16 21:45 06/15/16 21:17 (TEGretol) 200 mg TID PO 06/13/16 09:00 06/16/16 12:31 (Aricept) 10 mg HS PO 06/12/16 21:39 06/15/16 21:17 (Neurontin) 100 mg BID PO 06/13/16 09:00 Hold (Neurontin) 200 mg HS PO 06/12/16 21:40 Hold (Lopressor) 50 mg Q12HR PO 06/12/16 21:40 06/16/16 10:06 (Protonix) 40 mg DAILY PO 06/13/16 09:00 06/16/16 10:09 (Zoloft) 50 mg HS PO 06/13/16 21:00 06/15/16 21:54 (Flomax) 0.4 mg HS PO 06/13/16 21:00 06/15/16 21:17 (Vasotec Inj) 1.25 mg Q6H PRN IV PUSH 06/12/16 23:15 06/15/16 04:52 Hydralazine HCl 10 mg 10 mg Q4H PRN IV PUSH 06/14/16 09:30 06/15/16 03:26 (Cardene Inj/NS 250 ml Inj) 260 ml @ 0 mls/hr TITRATE IV 06/14/16 11:00 06/15/16 13:17 (Haldol Inj) 2 mg Q6H PRN IM 06/14/16 12:45 06/16/16 10:17 (Mycostatin Liq) 5 ml QID SWISH-SWAL 06/15/16 09:00 06/16/16 12:30 Artificial Tears 1 drop 1 drop Q4H PRN EACH EYE 06/14/16 23:15 Vancomycin HCl 1250 mg/Sodium Chloride 262.5 ml @ 262.5 mls/ hr Q18H IV 06/15/16 12:00 06/16/16 06:35 Pharmacy Profile Note 0 ml @ 0 mls/hr UNSCH OTHER 06/15/16 09:30 (Zosyn 3.375 Gm Premix) 50 ml @ 100 mls/hr Q6H IV 06/15/16 10:00 06/16/16 10:05 Miscellaneous Information SPECIFIC LAB TO BE DRAWN:VANCOMYCIN TROUGH DATE TO... ONCE ONCE XX 06/17/16 17:45 06/17/16 17:46 (D5W-06/14 NS 1000 ml Inj) 1,000 ml @ 75 mls/hr Q25O94M IV 06/15/16 11:30 06/16/16 03:57 (Ativan Inj) 1 mg Q8HR IV PUSH 06/16/16 22:00 Physical Exam Vital Signs Vital Signs Date Time Temp Pulse Resp B/P Pulse Ox O2 Delivery O2 Flow Rate FiO2 06/16/16 12:00 79 06/16/16 11:43 98.0 18 156/75 96 06/16/16 07:20 Nasal Cannula 4.00 I/O 06/15/16 06/15/16 06/16/16 08:00 16:00 00:00 Intake Total 1885 ml 1088 ml 784 ml Output Total 1200 ml 1300 ml 1000 ml Balance 685 ml -212 ml -216 ml Mental Status Examination Speech: Hesitant, Other (marked poverty of speech) Memory: Impaired (describe) Thought Process: Thought Blocking Affect if Inappropriate: Flat Assessment & Plan Problem List: (1) Mood disorder Assessment & Plan: On psychiatric evaluation patient is obtunded, with visible mutism and negativism, difficulty to initiate any movement or conversation, kind of stiff and rigid, with marked poverty of speech and thought. Patient is treated for pneumonia and acute kidney failure Presentation seems to be consistent with catatonia, I am is starting Ativan 2 mg IV stat, and then Ativan 1 mg IV every 8 hours. However, at typical NMS (so far, I don't know the patient wasn't nonpsychotic before) and neuroleptic malignant syndrome needs to be carefully rule out Avoid antipsychotics, I discontinued Zoloft 50 mg. There is no psychiatric of the medication at this moment for Depakote, if neurology wants to use for epileptogenic activity We'll continue follow-up ICD Code: F39 Assessment & Plan Estimated LOS: days Daniel Feldman MD Jun 16, 2016 13:22
[2016-06-16] MEDS: LACOSAMIDE INJ 50 MG in SODIUM CHLORIDE 0.9% INJ 100 ML IV SCH (16:23)
[2016-06-16 18:00] LABS: CKMB 3.4 NG/ML (0.5-3.6)
--- NOTE | 2016-06-16 18:09 | HHI.PR ---
Subjective Remarks patient stated his name, awake and alert, ff commands denies any discomfort poor po intake Objective Vitals Vital Signs Date Time Temp Pulse Resp B/P Pulse Ox O2 Delivery O2 Flow Rate FiO2 06/16/16 15:32 60 06/16/16 14:19 90 06/16/16 13:00 85 06/16/16 12:00 79 06/16/16 11:43 98.0 88 18 156/75 96 06/16/16 11:43 62 06/16/16 10:00 85 06/16/16 09:05 70 06/16/16 07:20 98 Nasal Cannula 4.00 06/16/16 07:00 98 Nasal Cannula 2.00 06/16/16 07:00 98.2 75 19 130/65 99 06/16/16 06:00 79 06/16/16 05:00 84 06/16/16 04:00 81 06/16/16 03:00 97.9 87 20 145/84 98 06/16/16 03:00 79 06/16/16 02:00 81 06/16/16 01:00 92 06/16/16 00:00 78 06/15/16 23:00 97.9 68 20 151/84 97 06/15/16 23:00 68 06/15/16 22:00 95 06/15/16 21:00 76 06/15/16 20:04 98 Nasal Cannula 4.00 06/15/16 20:00 95 06/15/16 19:00 98 Nasal Cannula 6.00 06/15/16 19:00 83 06/15/16 19:00 98.6 83 20 151/84 98 I/O 06/15/16 06/15/16 06/15/16 06/16/16 06/16/16 06/16/16 07:00 15:00 23:00 07:00 15:00 23:00 Intake Total 1885 ml 1088 ml 784 ml 552 ml 1000 ml Output Total 1200 ml 1300 ml 1000 ml 300 ml 500 ml Balance 685 ml -212 ml -216 ml 252 ml 500 ml Intake Oral 25 ml 0 ml 30 ml 0 ml 200 ml IV Total 1860 ml 1088 ml 754 ml 552 ml 800 ml Output Urine Total 1200 ml 1300 ml 1000 ml 300 ml 500 ml # Bowel Movements 0 0 0 0 1 Result Diagram: 06/16/16 0433 06/16/16 0433 Imaging Last Impressions Brain MRI 06/16/16 0000 Signed Impressions: Service Date/Time: Thursday, June 16, 2016 10:35 - CONCLUSION: 1. Moderate chronic ischemic changes in the periventricular white matter. No recent infarct. No mass effect or shift. Sixto Johnston MD Chest X-Ray 06/15/16 0000 Signed Impressions: Service Date/Time: Wednesday, June 15, 2016 07:47 - CONCLUSION: Left lower lung infiltrate. Cricket Perez MD Renal Ultrasound 06/13/16 0000 Signed Impressions: Service Date/Time: Monday, June 13, 2016 21:21 - CONCLUSION: Mildly echogenic kidneys consistent with underlying medical renal disease. No obstruction. Jl Hernández Jr., MD Head CT 06/13/16 0000 Signed Impressions: Service Date/Time: Monday, June 13, 2016 03:29 - CONCLUSION: Normal examination for acute event. No hemorrhage or edema. Gab Baird MD Objective Remarks awake and alert, confused ? postictal stte still anicteric no bruit lungs no rales or wheezes regular rhythm abdomen soft, nontender extremities no edema motor- moves all extremities but with increase resistance or ? rigidity Urinary Catheter: Yes Assessment to: Continue Persaud insert reason: Measure Accurate Output Date of Insertion: Jun 12, 2016 A/P Assessment and Plan This is a 71-year-old male patient with past medical history which includes depression, BPH, hyperlipidemia, dementia, CAD status post coronary artery bypass graft admitted to psych unit for dementia and mood disorder, transferred to the hospital for acute renal failure and altered mental status. Altered mental status -post ictal- unclear baseline though EEG showed possible epileptiform focus in the right central and right temporal area. CT scan of the head unremarkable, MRI negative started on [facility] neurology ff. Acute kidney injury - pre renal component - creatinine up a little Rhabdomyolysis due to SZ Hypokalemia continue IVF + KCL Ultrasound of the kidney showed echogenic kidneys suggestive of medical renal disease. Nephrology following. Hypokalemia likely secondary to poor oral intake. Hold gabapentin. Baseline creatinine is around 1.2. may require PEG for nutrition and hydration - if po intake erratic due to underlying psychiatric condition to prevent recurrent acute kidney injury will discuss with Dr. [facility]-acquired pneumonia versus aspiration pneumonia-patient had an episode of desaturation, chest x-ray personally reviewed showed left lower lobe infiltrate. Keep on oxygen, start DuoNeb's on start vancomycin and Zosyn Sinus tachycardia-likely secondary to withdrawal from metoprolol versus agitation, Continue metoprolol. 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 Patient however has not been taking his medications because of catatonic state. Took metoprolol and Norvasc today. . Hypertensive urgency likely secondary to noncompliance. Mood disorder- ? Catatonic appreciate Psychiatry ff along with us. started on Ativan q 8 GI discomfort-Protonix daily, Zofran Tums and simethicone as needed BLE pain consistent with neuropathy-hold gabapentin and tramadol for now until mental status is better and one renal failure resolves. BPH, hyperlipidemia, CAD and dementia continue patient's home medications these appear stable Hypernatremia-switch IVF to half-normal saline.ff BMP prophylaxis: lovenox, PPI PT/OT consult in am Slava Yip MD Jun 16, 2016 18:09 Slava Yip MD Jun 16, 2016 18:09
[2016-06-16] MEDS: 1/2 NS + KCL 20 MEQ INJ 1,000 ML IV SCH (20:50)
[2016-06-16] MEDS: TAMSULOSIN HCL 0.4 MG CAP PO SCH (20:51)
[2016-06-16] MEDS: ENOXAPARIN SODIUM 30 MG/0.3 ML SYRINGE SQ SCH (20:51)
[2016-06-16] MEDS: ATORVASTATIN 40 MG TAB PO SCH (20:52)
[2016-06-16] MEDS: DONEPEZIL HCL 5 MG TAB PO SCH (20:52)
[2016-06-16] MEDS: LORazepam 2 MG/ML VIAL IV PUSH SCH (22:19)
[2016-06-17] VITALS (8 sets, daily range): BP systolic 140–163; BP diastolic 66–83; PULSE 84–115; RESP 16–22; TEMP 97.8–99; O2SAT 94–99
[2016-06-17] MEDS: VANCOMYCIN INJ 1,250 MG in SODIUM CHLOR 0.9% 250 ML INJ 250 ML IV SCH ×2 (00:02→18:18)
[2016-06-17] MEDS: DEXT 5%-NACL 0.45% 1000 ML INJ 1,000 ML IV SCH ×2 (03:55→11:26)
[2016-06-17] MEDS: PIPERACIL-TAZO 3.375 GM PREMIX 50 ML IV SCH ×4 (03:55→22:06)
[2016-06-17] MEDS: 1/2 NS + KCL 20 MEQ INJ 1,000 ML IV SCH ×3 (04:00→19:54)
[2016-06-17] MEDS: LACOSAMIDE INJ 50 MG in SODIUM CHLORIDE 0.9% INJ 100 ML IV SCH ×2 (04:39→15:55)
[2016-06-17] MEDS: LORazepam 2 MG/ML VIAL IV PUSH SCH ×3 (05:46→22:05)
[2016-06-17] MEDS: RESP: ALBUTEROL 2.5 MG/IPRATROPIUM 0.5 MG NEB (SCH) NEB ×3 (07:30→19:37)
[2016-06-17] MEDS: PANTOPRAZOLE SOD 40 MG DELAYED RELEASE TAB PO SCH (09:32)
[2016-06-17] MEDS: METOPROLOL TARTRATE 50 MG TAB PO SCH ×2 (09:32→19:53)
[2016-06-17] MEDS: NYSTATIN SUSP 500,000 U/5 ML CUP SWISH-SWAL SCH ×4 (09:33→19:53)
[2016-06-17] MEDS: carBAMazepine 200 MG TAB PO SCH ×2 (12:25→17:04)
--- NOTE | 2016-06-17 15:16 | HHI.PR ---
Subjective Remarks patient more interactive, relaxed, not as rigid stated his name, smiled and joked some Objective Vitals Vital Signs Date Time Temp Pulse Resp B/P Pulse Ox O2 Delivery O2 Flow Rate FiO2 06/17/16 09:14 101 06/17/16 09:14 Room Air 06/17/16 04:00 98.6 105 20 140/66 97 06/17/16 00:00 97.8 94 20 147/83 97 06/16/16 22:00 Room Air 06/16/16 22:00 99 06/16/16 20:00 98.1 101 20 148/81 98 06/16/16 19:53 93 21 06/16/16 15:32 60 I/O 06/16/16 06/16/16 06/16/16 06/17/16 06/17/16 06/17/16 06:59 14:59 22:59 06:59 14:59 22:59 Intake Total 552 ml 1000 ml 0 ml 240 ml Output Total 300 ml 500 ml 375 ml 550 ml Balance 252 ml 500 ml -375 ml -310 ml Intake Oral 0 ml 200 ml 0 ml 240 ml IV Total 552 ml 800 ml Output Urine Total 300 ml 500 ml 375 ml 550 ml # Bowel Movements 0 1 0 0 Result Diagram: 06/16/16 0433 06/16/16 0433 Imaging Last Impressions Brain MRI 06/16/16 0000 Signed Impressions: Service Date/Time: Thursday, June 16, 2016 10:35 - CONCLUSION: 1. Moderate chronic ischemic changes in the periventricular white matter. No recent infarct. No mass effect or shift. Sixto Johnston MD Chest X-Ray 06/15/16 0000 Signed Impressions: Service Date/Time: Wednesday, June 15, 2016 07:47 - CONCLUSION: Left lower lung infiltrate. Cricket Perez MD Renal Ultrasound 06/13/16 0000 Signed Impressions: Service Date/Time: Monday, June 13, 2016 21:21 - CONCLUSION: Mildly echogenic kidneys consistent with underlying medical renal disease. No obstruction. Jl Hernández Jr., MD Head CT 06/13/16 0000 Signed Impressions: Service Date/Time: Monday, June 13, 2016 03:29 - CONCLUSION: Normal examination for acute event. No hemorrhage or edema. Gab Baird MD Objective Remarks awake and alert, oriented to person and year anicteric no bruit lungs no rales or wheezes regular rhythm abdomen soft, nontender extremities no edema motor- moves all extremities - with less resistance and voluntarily more relax Date of Insertion: Jun 12, 2016 A/P Assessment and Plan This is a 71-year-old male patient with past medical history which includes depression, BPH, hyperlipidemia, dementia, CAD status post coronary artery bypass graft admitted to psych unit for dementia and mood disorder, transferred to the hospital for acute renal failure and altered mental status. Altered mental status -post ictal- unclear baseline though EEG showed possible epileptiform focus in the right central and right temporal area. CT scan of the head unremarkable, MRI negative on [facility] neurology ff. Acute kidney injury - pre renal component Rhabdomyolysis due to SZ Hypokalemia continue IVF + KCL Ultrasound of the kidney showed echogenic kidneys suggestive of medical renal disease. Nephrology following. Hypokalemia likely secondary to poor oral intake. Hold gabapentin. Baseline creatinine is around 1.2. ff renal functions Hospital-acquired pneumonia versus aspiration pneumonia-patient had an episode of desaturation, chest x-ray personally reviewed showed left lower lobe infiltrate. Keep on oxygen, start DuoNeb's on vancomycin and Zosyn Sinus tachycardia-likely secondary to withdrawal from metoprolol versus agitation, EKG personally reviewed showed sinus tachycardia, continue Cardene drip for now. Continue metoprolol. 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 Patient however has not been taking his medications because of catatonic state. metoprolol and Norvasc Mood disorder- ? Catatonic appreciate Psychiatry ff along with us. started on Ativan q 8 GI discomfort-Protonix daily, Zofran Tums and simethicone as needed BLE pain consistent with neuropathy-hold gabapentin and tramadol for now until mental status is better and one renal failure resolves. BPH, hyperlipidemia, CAD and dementia continue patient's home medications these appear stable Hypernatremia-switch IVF to half-normal saline.ff BMP today prophylaxis: lovenox, PPI PT/OT consulttoday Slava Yip MD Jun 17, 2016 15:16
[2016-06-17 16:42] LABS: BICARBONATE 23.6 MEQ/L (21.0-32.0); POTASSIUM 3.5 MEQ/L (3.5-5.1)
[2016-06-17] MEDS ORDERED: PHARMACY ORDERED LAB XX ONE (17:45)
[2016-06-17] MEDS: DONEPEZIL HCL 5 MG TAB PO SCH (19:53)
[2016-06-17] MEDS: ENOXAPARIN SODIUM 30 MG/0.3 ML SYRINGE SQ SCH (19:54)
[2016-06-17] MEDS: ATORVASTATIN 40 MG TAB PO SCH (19:54)
[2016-06-17] MEDS: TAMSULOSIN HCL 0.4 MG CAP PO SCH (19:54)
[2016-06-18] VITALS (8 sets, daily range): BP systolic 123–177; BP diastolic 67–97; PULSE 86–95; RESP 20; TEMP 97.6–98.6; O2SAT 94–97
[2016-06-18] MEDS: LACOSAMIDE INJ 50 MG in SODIUM CHLORIDE 0.9% INJ 100 ML IV SCH ×2 (03:38→17:08)
[2016-06-18] MEDS: PIPERACIL-TAZO 3.375 GM PREMIX 50 ML IV SCH ×4 (05:02→21:51)
[2016-06-18] MEDS: LORazepam 2 MG/ML VIAL IV PUSH SCH ×3 (05:03→21:51)
[2016-06-18] MEDS: 1/2 NS + KCL 20 MEQ INJ 1,000 ML IV SCH ×3 (05:03→21:51)
[2016-06-18] MEDS: RESP: ALBUTEROL 2.5 MG/IPRATROPIUM 0.5 MG NEB (SCH) NEB ×3 (08:03→20:32)
[2016-06-18] MEDS: NYSTATIN SUSP 500,000 U/5 ML CUP SWISH-SWAL SCH ×5 (09:49→21:50)
[2016-06-18] MEDS: PANTOPRAZOLE SOD 40 MG DELAYED RELEASE TAB PO SCH (09:49)
[2016-06-18] MEDS: carBAMazepine 200 MG TAB PO SCH ×3 (09:49→17:08)
[2016-06-18] MEDS: METOPROLOL TARTRATE 50 MG TAB PO SCH ×2 (09:49→21:50)
[2016-06-18 10:56] LABS: ALKALINE PHOSPHATASE 64 U/L (45-117); ALT (GPT) 20 U/L (12-78); ANION GAP 9 MEQ/L (5-15); AST (GOT) 23 U/L (15-37); BICARBONATE 20.6 MEQ/L (21.0-32.0); BLOOD UREA NITROGEN 10 MG/DL (7-18); CHLORIDE 110 MEQ/L (98-107); CREATINE KINASE 485 U/L (39-308); GLOMERULAR FILTRATION RATE 67 ML/MIN (>89); POTASSIUM 3.7 MEQ/L (3.5-5.1); SODIUM (NA) 140 MEQ/L (136-145); TOTAL BILIRUBIN ADULT 0.5 MG/DL (0.2-1.0)
[2016-06-18 11:13] LABS: CKMB 3.2 NG/ML (0.5-3.6)
[2016-06-18] MEDS: VANCOMYCIN INJ 1,250 MG in SODIUM CHLOR 0.9% 250 ML INJ 250 ML IV SCH (12:31)
--- NOTE | 2016-06-18 12:47 | HHI.PR ---
Subjective Remarks more interactive and talking- oriented to person, place and year but kept his eyes close most of the time ff commands denies any pain motot mvoements more spontaneous- no rigidity Objective Vitals Vital Signs Date Time Temp Pulse Resp B/P Pulse Ox O2 Delivery O2 Flow Rate FiO2 06/18/16 08:07 97.6 92 20 153/97 94 06/18/16 04:00 98.3 93 20 123/67 97 06/18/16 00:00 97.6 94 20 133/68 96 06/17/16 20:00 Room Air 06/17/16 20:00 99.0 90 20 146/82 94 06/17/16 20:00 115 06/17/16 19:40 99 06/17/16 16:00 98.3 95 16 155/76 99 I/O 06/17/16 06/17/16 06/17/16 06/18/16 06/18/16 06/18/16 07:00 15:00 23:00 07:00 15:00 23:00 Intake Total 240 ml 30 ml 120 ml 1559 ml Output Total 550 ml 1000 ml 525 ml 725 ml Balance -310 ml -970 ml -405 ml 834 ml Intake Oral 240 ml 30 ml 120 ml 120 ml IV Total 1439 ml Output Urine Total 550 ml 1000 ml 525 ml 725 ml # Bowel Movements 0 1 0 Result Diagram: 06/16/16 0433 06/18/16 1002 Imaging Last Impressions Brain MRI 06/16/16 0000 Signed Impressions: Service Date/Time: Thursday, June 16, 2016 10:35 - CONCLUSION: 1. Moderate chronic ischemic changes in the periventricular white matter. No recent infarct. No mass effect or shift. Sixto Johnston MD Chest X-Ray 06/15/16 0000 Signed Impressions: Service Date/Time: Wednesday, June 15, 2016 07:47 - CONCLUSION: Left lower lung infiltrate. Cricket Perez MD Renal Ultrasound 06/13/16 0000 Signed Impressions: Service Date/Time: Monday, June 13, 2016 21:21 - CONCLUSION: Mildly echogenic kidneys consistent with underlying medical renal disease. No obstruction. Jl Hernández Jr., MD Head CT 06/13/16 0000 Signed Impressions: Service Date/Time: Monday, June 13, 2016 03:29 - CONCLUSION: Normal examination for acute event. No hemorrhage or edema. Gab Baird MD Objective Remarks awake and alert, oriented to person and year anicteric no bruit lungs no rales or wheezes regular rhythm abdomen soft, nontender extremities no edema motor- moves all extremities -- no rigidity on exam Urinary Catheter: Yes Assessment to: Remove Date of Insertion: Jun 12, 2016 Date of Removal: Jun 18, 2016 A/P Assessment and Plan This is a 71-year-old male patient with past medical history which includes depression, BPH, hyperlipidemia, dementia, CAD status post coronary artery bypass graft admitted to psych unit for dementia and mood disorder, transferred to the hospital for acute renal failure and altered mental status. Altered mental status -post ictal- unclear baseline though EEG showed possible epileptiform focus in the right central and right temporal area. CT scan of the head unremarkable, MRI negative on [facility] neurology ff. Acute kidney injury - pre renal component - improved Rhabdomyolysis due to SZ Hypokalemia continue IVF + KCL Ultrasound of the kidney showed echogenic kidneys suggestive of medical renal disease. Nephrology following. Hypokalemia likely secondary to poor oral intake. Hold gabapentin. Catatonia- less rigid on Ativan 1 mg IV q 8 per psychiatry - will decrease to q 12 may require PEG for nutrition and hydration - if po intake erratic due to underlying psychiatric condition to prevent recurrent acute kidney injury will discuss with Dr. [facility]-acquired pneumonia versus aspiration pneumonia-patient had an episode of desaturation, chest x-ray personally reviewed showed left lower lobe infiltrate. Keep on oxygen, start DuoNeb's on start vancomycin and Zosyn Sinus tachycardia-likely secondary to withdrawal from metoprolol versus agitation, Continue metoprolol. 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 Patient however has not been taking his medications because of catatonic state. Took metoprolol and Norvasc today. . Hypertensive urgency likely secondary to noncompliance. Mood disorder- ? Catatonic appreciate Psychiatry ff along with us. started on Ativan q 8 GI discomfort-Protonix daily, Zofran Tums and simethicone as needed BLE pain consistent with neuropathy-hold gabapentin and tramadol for now until mental status is better and one renal failure resolves. no complaints Get PT consult BPH, hyperlipidemia, CAD and dementia continue patient's home medications these appear stable Hypernatremia-switch IVF to half-normal saline.ff BMP prophylaxis: lovenox, PPI PT/OT consult today/speech tehrapy for swallowing and cognitive evaluation Slava Yip MD Jun 18, 2016 12:47
[2016-06-18] MEDS: ENOXAPARIN SODIUM 30 MG/0.3 ML SYRINGE SQ SCH (21:50)
[2016-06-18] MEDS: TAMSULOSIN HCL 0.4 MG CAP PO SCH (21:50)
[2016-06-18] MEDS: ATORVASTATIN 40 MG TAB PO SCH (21:50)
[2016-06-18] MEDS: DONEPEZIL HCL 5 MG TAB PO SCH (21:50)
[2016-06-19] VITALS (7 sets, daily range): BP systolic 135–156; BP diastolic 73–84; PULSE 72–86; RESP 20; TEMP 97.7–98.9; O2SAT 93–98
[2016-06-19] MEDS: LACOSAMIDE INJ 50 MG in SODIUM CHLORIDE 0.9% INJ 100 ML IV SCH ×2 (04:51→16:00)
[2016-06-19] MEDS: 1/2 NS + KCL 20 MEQ INJ 1,000 ML IV SCH (04:55)
[2016-06-19] MEDS: PIPERACIL-TAZO 3.375 GM PREMIX 50 ML IV SCH ×4 (04:55→22:05)
[2016-06-19] MEDS: VANCOMYCIN INJ 1,250 MG in SODIUM CHLOR 0.9% 250 ML INJ 250 ML IV SCH (04:56)
[2016-06-19] MEDS: LORazepam 2 MG/ML VIAL IV PUSH SCH ×2 (04:57→14:00)
[2016-06-19] MEDS: METOPROLOL TARTRATE 50 MG TAB PO SCH ×2 (09:00→22:05)
[2016-06-19] MEDS: PANTOPRAZOLE SOD 40 MG DELAYED RELEASE TAB PO SCH (09:00)
[2016-06-19] MEDS: carBAMazepine 200 MG TAB PO SCH ×3 (09:00→17:36)
[2016-06-19] MEDS: NYSTATIN SUSP 500,000 U/5 ML CUP SWISH-SWAL SCH ×4 (09:00→22:05)
[2016-06-19] MEDS: RESP: ALBUTEROL 2.5 MG/IPRATROPIUM 0.5 MG NEB (SCH) NEB ×2 (10:07→13:39)
--- NOTE | 2016-06-19 16:17 | HHI.PR ---
Subjective Remarks drowsy but easily rousable- expressed in Cam[place] denies any pain- able to state when he wants to have a BM or voiding needs assistance with feeding no rigidity Objective Vitals Vital Signs Date Time Temp Pulse Resp B/P Pulse Ox O2 Delivery O2 Flow Rate FiO2 06/19/16 12:00 97.7 72 20 152/74 95 06/19/16 10:07 98 21 06/19/16 08:00 97 Room Air 06/19/16 08:00 73 06/19/16 08:00 97.9 73 20 139/81 98 06/19/16 06:15 98.0 84 20 156/84 95 06/19/16 01:52 98.0 86 20 147/84 96 06/18/16 21:50 Room Air 06/18/16 20:32 96 06/18/16 20:19 97.7 86 20 177/90 96 06/18/16 20:00 95 I/O 06/18/16 06/18/16 06/18/16 06/19/16 06/19/16 06/19/16 07:00 15:00 23:00 07:00 15:00 23:00 Intake Total 1559 ml 3504 ml 550 ml Output Total 725 ml 2900 ml Balance 834 ml 604 ml 550 ml Intake Oral 120 ml 2600 ml 550 ml IV Total 1439 ml 904 ml Output Urine Total 725 ml 2900 ml # Bowel Movements 0 2 Result Diagram: 06/16/16 0433 06/18/16 1002 Imaging Last Impressions Brain MRI 06/16/16 0000 Signed Impressions: Service Date/Time: Thursday, June 16, 2016 10:35 - CONCLUSION: 1. Moderate chronic ischemic changes in the periventricular white matter. No recent infarct. No mass effect or shift. Sixto Johnston MD Chest X-Ray 06/15/16 0000 Signed Impressions: Service Date/Time: Wednesday, June 15, 2016 07:47 - CONCLUSION: Left lower lung infiltrate. Cricket Perez MD Renal Ultrasound 06/13/16 0000 Signed Impressions: Service Date/Time: Monday, June 13, 2016 21:21 - CONCLUSION: Mildly echogenic kidneys consistent with underlying medical renal disease. No obstruction. Jl Hernández Jr., MD Head CT 06/13/16 0000 Signed Impressions: Service Date/Time: Monday, June 13, 2016 03:29 - CONCLUSION: Normal examination for acute event. No hemorrhage or edema. Gab Baird MD Objective Remarks awake and alert, oriented to person and place "[place]" anicteric no bruit lungs no rales or wheezes regular rhythm abdomen soft, nontender extremities no edema motor- moves all extremities -- no rigidity on exam Date of Insertion: Jun 12, 2016 Date of Removal: Jun 18, 2016 A/P Assessment and Plan This is a 71-year-old male patient with past medical history which includes depression, BPH, hyperlipidemia, dementia, CAD status post coronary artery bypass graft admitted to psych unit for dementia and mood disorder, transferred to the hospital for acute renal failure and altered mental status. Altered mental status -post ictal- unclear baseline though EEG showed possible epileptiform focus in the right central and right temporal area. CT scan of the head unremarkable, MRI negative on [facility] neurology ff. Acute kidney injury - pre renal component - improved Rhabdomyolysis due to SZ Hypokalemia continue IVF + KCL Ultrasound of the kidney showed echogenic kidneys suggestive of medical renal disease. Nephrology following. Hypokalemia likely secondary to poor oral intake. Hold gabapentin. Catatonia- less rigid Depresion with underlying Dementia on Ativan 1 mg IV q 8 per psychiatry - will decrease to q 12 may require PEG for nutrition and hydration - if po intake erratic due to underlying psychiatric condition to prevent recurrent acute kidney injury will discuss with Dr. [facility]-acquired pneumonia versus aspiration pneumonia-patient had an episode of desaturation, chest x-ray personally reviewed showed left lower lobe infiltrate. Keep on oxygen, start DuoNeb's on start vancomycin and Zosyn Sinus tachycardia-likely secondary to withdrawal from metoprolol versus agitation, Continue metoprolol. 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 Patient however has not been taking his medications because of catatonic state. Took metoprolol and Norvasc today. . Hypertensive urgency likely secondary to noncompliance. Mood disorder- ? Catatonic appreciate Psychiatry ff along with us. started on Ativan q 8 GI discomfort-Protonix daily, Zofran Tums and simethicone as needed BLE pain consistent with neuropathy-hold gabapentin and tramadol for now until mental status is better and one renal failure resolves. no complaints Get PT consult BPH, hyperlipidemia, CAD and dementia continue patient's home medications these appear stable Hypernatremia-switch IVF to half-normal saline.ff BMP prophylaxis: lovenox, PPI PT/OT consult today/speech tehrapy for swallowing and cognitive evaluation Slava Yip MD Jun 19, 2016 16:17
[2016-06-19] MEDS ORDERED: LORazepam 0.5 MG TAB PO PRN (16:30)
[2016-06-19] MEDS ORDERED: LORazepam 2 MG/ML VIAL IV PUSH PRN (16:30)
[2016-06-19] MEDS: DONEPEZIL HCL 5 MG TAB PO SCH (22:04)
[2016-06-19] MEDS: LORazepam 0.5 MG TAB PO SCH (22:04)
[2016-06-19] MEDS: ENOXAPARIN SODIUM 30 MG/0.3 ML SYRINGE SQ SCH (22:04)
[2016-06-19] MEDS: ATORVASTATIN 40 MG TAB PO SCH (22:05)
[2016-06-19] MEDS: TAMSULOSIN HCL 0.4 MG CAP PO SCH (22:05)
[2016-06-20 00:12] VITALS: BP 160/84; PULSE 73; RESP 20; TEMP 98.7; O2SAT 98
[2016-06-20] MEDS ORDERED: PHARMACY ORDERED LAB XX ONE (00:45)
[2016-06-20] MEDS: 1/2 NS + KCL 20 MEQ INJ 1,000 ML IV SCH ×2 (03:30→21:07)
[2016-06-20] MEDS: PIPERACIL-TAZO 3.375 GM PREMIX 50 ML IV SCH ×4 (04:22→21:06)
[2016-06-20] MEDS: LACOSAMIDE INJ 50 MG in SODIUM CHLORIDE 0.9% INJ 100 ML IV SCH ×2 (04:22→16:00)
[2016-06-20 04:23] VITALS: BP 139/79; PULSE 75; RESP 16; TEMP 98.6; O2SAT 96
[2016-06-20] MEDS: LORazepam 0.5 MG TAB PO SCH ×3 (05:19→21:07)
[2016-06-20 08:00] VITALS: BP 154/79; PULSE 63; PULSE 70; RESP 16; TEMP 98; O2SAT 96
[2016-06-20] MEDS: METOPROLOL TARTRATE 50 MG TAB PO SCH ×2 (09:00→21:08)
[2016-06-20] MEDS: NYSTATIN SUSP 500,000 U/5 ML CUP SWISH-SWAL SCH ×4 (09:00→21:07)
[2016-06-20] MEDS: carBAMazepine 200 MG TAB PO SCH ×3 (09:00→17:56)
[2016-06-20] MEDS: PANTOPRAZOLE SOD 40 MG DELAYED RELEASE TAB PO SCH (09:00)
[2016-06-20 09:23] LABS: BICARBONATE 23.2 MEQ/L (21.0-32.0); POTASSIUM 3.7 MEQ/L (3.5-5.1)
--- NOTE | 2016-06-20 10:35 | HHI.PR ---
Subjective Remarks more interactive- muscle tone much more relax and flexible, not rigid at all complains of constipation Objective Vitals Vital Signs Date Time Temp Pulse Resp B/P Pulse Ox O2 Delivery O2 Flow Rate FiO2 06/20/16 08:00 98.0 70 16 154/79 96 06/20/16 04:23 98.6 75 16 139/79 96 06/20/16 00:12 98.7 73 20 160/84 98 06/19/16 21:50 97 Room Air 06/19/16 20:00 98.9 82 20 156/80 94 06/19/16 16:00 97.7 81 20 135/73 93 06/19/16 12:00 97.7 72 20 152/74 95 I/O 06/19/16 06/19/16 06/19/16 06/20/16 06/20/16 06/20/16 07:00 15:00 23:00 07:00 15:00 23:00 Intake Total 240 ml 820 ml 988 ml Balance 240 ml 820 ml 988 ml Intake Oral 240 ml 240 ml 100 ml IV Total 580 ml 888 ml # Voids 2 2 2 Result Diagram: 06/16/16 0433 06/20/16 0751 Imaging Last Impressions Brain MRI 06/16/16 0000 Signed Impressions: Service Date/Time: Thursday, June 16, 2016 10:35 - CONCLUSION: 1. Moderate chronic ischemic changes in the periventricular white matter. No recent infarct. No mass effect or shift. Sixto Johnston MD Chest X-Ray 06/15/16 0000 Signed Impressions: Service Date/Time: Wednesday, June 15, 2016 07:47 - CONCLUSION: Left lower lung infiltrate. Cricket Perez MD Renal Ultrasound 06/13/16 0000 Signed Impressions: Service Date/Time: Monday, June 13, 2016 21:21 - CONCLUSION: Mildly echogenic kidneys consistent with underlying medical renal disease. No obstruction. Jl Hernández Jr., MD Head CT 06/13/16 0000 Signed Impressions: Service Date/Time: Monday, June 13, 2016 03:29 - CONCLUSION: Normal examination for acute event. No hemorrhage or edema. Gab Baird MD Objective Remarks awake and alert, oriented to person and place , answers appropriately, denies any pain anicteric no bruit lungs no rales or wheezes regular rhythm abdomen soft, nontender extremities no edema motor- moves all extremities -- no rigidity on exam Date of Insertion: Jun 12, 2016 Date of Removal: Jun 18, 2016 A/P Assessment and Plan This is a 71-year-old male patient with past medical history which includes depression, BPH, hyperlipidemia, dementia, CAD status post coronary artery bypass graft admitted to psych unit for dementia and mood disorder, transferred to the hospital for acute renal failure and altered mental status. Altered mental status -post ictal- unclear baseline though EEG showed possible epileptiform focus in the right central and right temporal area. CT scan of the head unremarkable, [facility] Acute kidney injury - pre renal component - improved Rhabdomyolysis due to SZ- resolved Hypokalemia - resolved continue IVF + KCL Ultrasound of the kidney showed echogenic kidneys suggestive of medical renal disease. Nephrology following. Hypokalemia likely secondary to poor oral intake. Hold gabapentin. Catatonia- less rigid Depression with underlying Dementia change to po Ativan 0.5 mg po q8 Psychiatry ff along with us- was transferred here from psychiatry unit Hospital-acquired pneumonia versus aspiration pneumonia-patient had an episode of desaturation, chest x-ray personally reviewed showed left lower lobe infiltrate. Keep on oxygen, start DuoNeb's on vancomycin and Zosyn Increase activity- outof bed Sinus tachycardia-likely secondary to withdrawal from metoprolol versus agitation, Continue metoprolol. 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 Patient however has not been taking his medications because of catatonic state. Took metoprolol and Norvasc today. . Hypertensive urgency likely secondary to noncompliance. Mood disorder- ? Catatonic appreciate Psychiatry ff along with us. started on Ativan q 8 GI discomfort-Protonix daily, Zofran Tums and simethicone as needed BLE pain consistent with neuropathy-hold gabapentin and tramadol for now until mental status is better and one renal failure resolves. no complaints PT BPH, hyperlipidemia, CAD and dementia continue patient's home medications these appear stable Hypernatremia resolved -switch IVF to half-normal saline.ff BMP prophylaxis: lovenox, PPI PT/OT consult today/speech tehrapy for swallowing and cognitive evaluation Psychiatry ff [employer]rase activity Slava Yip MD Jun 20, 2016 10:35
[2016-06-20] MEDS: ENALAPRILAT 1.25 MG/ML VIAL IV PUSH PRN (11:32)
[2016-06-20 12:00] VITALS: BP 187/85; PULSE 76; RESP 24; TEMP 97.7; O2SAT 94
[2016-06-20 16:00] VITALS: BP 131/75; PULSE 76; RESP 24; TEMP 98.2; O2SAT 95
[2016-06-20 20:00] VITALS: BP 150/77; PULSE 61; PULSE 74; RESP 18; TEMP 98.6; O2SAT 96
[2016-06-20] MEDS: DONEPEZIL HCL 5 MG TAB PO SCH (21:00)
[2016-06-20] MEDS: DOCUSATE SODIUM 100 MG CAP PO SCH (21:00)
[2016-06-20] MEDS: ENOXAPARIN SODIUM 30 MG/0.3 ML SYRINGE SQ SCH (21:07)
[2016-06-20] MEDS: TAMSULOSIN HCL 0.4 MG CAP PO SCH (21:07)
[2016-06-20] MEDS: ATORVASTATIN 40 MG TAB PO SCH (21:07)
[2016-06-21] VITALS (7 sets, daily range): BP systolic 136–187; BP diastolic 73–91; PULSE 57–94; RESP 18–20; TEMP 97.8–98.6; O2SAT 93–98
[2016-06-21] MEDS: PIPERACIL-TAZO 3.375 GM PREMIX 50 ML IV SCH ×2 (04:28→09:50)
[2016-06-21] MEDS: LACOSAMIDE INJ 50 MG in SODIUM CHLORIDE 0.9% INJ 100 ML IV SCH ×2 (04:29→16:37)
[2016-06-21] MEDS: LORazepam 0.5 MG TAB PO SCH ×3 (04:44→21:10)
[2016-06-21] MEDS: DOCUSATE SODIUM 100 MG CAP PO SCH ×2 (09:49→21:09)
[2016-06-21] MEDS: METOPROLOL TARTRATE 50 MG TAB PO SCH ×3 (09:50→21:09)
[2016-06-21] MEDS: NYSTATIN SUSP 500,000 U/5 ML CUP SWISH-SWAL SCH ×4 (09:50→21:09)
[2016-06-21] MEDS: carBAMazepine 200 MG TAB PO SCH ×3 (09:50→18:03)
[2016-06-21] MEDS: PANTOPRAZOLE SOD 40 MG DELAYED RELEASE TAB PO SCH (09:50)
--- NOTE | 2016-06-21 11:00 | HHI.PR ---
Subjective Remarks awake and alert, moving all extremities spontaenosuly Objective Vitals Vital Signs Date Time Temp Pulse Resp B/P Pulse Ox O2 Delivery O2 Flow Rate FiO2 06/21/16 08:00 97.8 76 20 187/91 96 06/21/16 04:00 98.3 94 18 136/73 96 06/21/16 00:01 98.6 70 18 160/86 98 06/20/16 20:10 97 Room Air 06/20/16 20:00 61 06/20/16 20:00 98.6 74 18 150/77 96 06/20/16 16:00 98.2 76 24 131/75 95 06/20/16 12:00 97.7 76 24 187/85 94 I/O 06/20/16 06/20/16 06/20/16 06/21/16 06/21/16 06/21/16 07:00 15:00 23:00 07:00 15:00 23:00 Intake Total 988 ml 480 ml 120 ml Output Total 675 ml Balance 988 ml 480 ml -555 ml Intake Oral 100 ml 480 ml 120 ml IV Total 888 ml Output Urine Total 675 ml # Voids 2 4 2 # Bowel Movements 3 2 Result Diagram: 06/20/16 0751 Imaging Last Impressions Brain MRI 06/16/16 0000 Signed Impressions: Service Date/Time: Thursday, June 16, 2016 10:35 - CONCLUSION: 1. Moderate chronic ischemic changes in the periventricular white matter. No recent infarct. No mass effect or shift. Sixto Johnston MD Chest X-Ray 06/15/16 0000 Signed Impressions: Service Date/Time: Wednesday, June 15, 2016 07:47 - CONCLUSION: Left lower lung infiltrate. Cricket Perez MD Renal Ultrasound 06/13/16 0000 Signed Impressions: Service Date/Time: Monday, June 13, 2016 21:21 - CONCLUSION: Mildly echogenic kidneys consistent with underlying medical renal disease. No obstruction. Jl Hernández Jr., MD Head CT 06/13/16 0000 Signed Impressions: Service Date/Time: Monday, June 13, 2016 03:29 - CONCLUSION: Normal examination for acute event. No hemorrhage or edema. Gab Baird MD Objective Remarks awake and alert, oriented to person and place muscle tone - relax anicteric no bruit lungs no rales or wheezes regular rhythm abdomen soft, nontender extremities no edema motor- moves all extremities - Date of Insertion: Jun 12, 2016 Date of Removal: Jun 18, 2016 A/P Assessment and Plan This is a 71-year-old male patient with past medical history which includes depression, BPH, hyperlipidemia, dementia, CAD status post coronary artery bypass graft admitted to psych unit for dementia and mood disorder, transferred to the hospital for acute renal failure and altered mental status. Sz disorder - Altered mental status -post ictal- -IMproved EEG showed possible epileptiform focus in the right central and right temporal area. CT scan of the head unremarkable, [facility] Acute kidney injury - pre renal component - improved Rhabdomyolysis due to SZ- resolved Hypokalemia - resolved Ultrasound of the kidney showed echogenic kidneys suggestive of medical renal disease. Nephrology following. Hypokalemia likely secondary to poor oral intake. Hold gabapentin. Underlying dementia with depression Catatonia- less rigid on po Ativan - 0.5 mg po q8 was transferred here from Psychiatry unit- service ff along with us Hospital-acquired pneumonia versus aspiration pneumonia-patient had an episode of desaturation, chest x-ray personally reviewed showed left lower lobe infiltrate. Keep on oxygen, start DuoNeb's on vancomycin and Zosyn- DC change to po augmentin Increase activity- out of bed Sinus tachycardia Hypertension increase BB to q 8. continue amlodipine Mood disorder- ? Catatonic appreciate Psychiatry ff along with us. doing well on Ativan 0.5 mg po q8 GI discomfort-Protonix daily, Zofran Tums and simethicone as needed BLE pain consistent with neuropathy-hold gabapentin and tramadol for now until mental status is better and one renal failure resolves. no complaints PT BPH, hyperlipidemia, CAD and dementia continue patient's home medications these appear stable Hypernatremia resolved -switch IVF to half-normal saline.ff BMP prophylaxis: lovenox, PPI PT/OT consult today/speech tehrapy for swallowing and cognitive evaluation Slava Yip MD Jun 21, 2016 11:00 prophylaxis: lovenox, PPI PT/OT consult today/speech tehrapy for swallowing and cognitive evaluation Psychiatry ff- transfer to psychiatry unit if ok with Dr. gabe Garcia activity Slava Yip MD Jun 21, 2016 11:00 Slava Yip MD Jun 21, 2016 11:00
[2016-06-21] MEDS: ACETAMINOPHEN 325 MG TAB PO PRN ×2 (12:54→21:10)
[2016-06-21] MEDS: AMOXICILLIN/CLAVULANATE K 500 MG TAB PO SCH ×2 (13:31→21:09)
[2016-06-21] MEDS: hydrALAZINE HCL 20 MG/ML VIAL IV PUSH PRN (18:03)
[2016-06-21] MEDS: ATORVASTATIN 40 MG TAB PO SCH (21:09)
[2016-06-21] MEDS: ENOXAPARIN SODIUM 30 MG/0.3 ML SYRINGE SQ SCH (21:09)
[2016-06-21] MEDS: TAMSULOSIN HCL 0.4 MG CAP PO SCH (21:10)
[2016-06-21] MEDS: DONEPEZIL HCL 5 MG TAB PO SCH (21:10)
[2016-06-22] VITALS (8 sets, daily range): BP systolic 140–173; BP diastolic 76–95; PULSE 62–90; RESP 18–24; TEMP 98–99.1; O2SAT 94–97
[2016-06-22] MEDS: LORazepam 0.5 MG TAB PO SCH ×2 (04:53→21:48)
[2016-06-22] MEDS: LACOSAMIDE INJ 50 MG in SODIUM CHLORIDE 0.9% INJ 100 ML IV SCH ×2 (04:53→16:11)
[2016-06-22] MEDS: AMOXICILLIN/CLAVULANATE K 500 MG TAB PO SCH ×3 (04:53→21:48)
[2016-06-22] MEDS: METOPROLOL TARTRATE 50 MG TAB PO SCH ×3 (04:53→21:48)
[2016-06-22] MEDS: PANTOPRAZOLE SOD 40 MG DELAYED RELEASE TAB PO SCH (09:59)
[2016-06-22] MEDS: carBAMazepine 200 MG TAB PO SCH ×2 (09:59→12:57)
[2016-06-22] MEDS: DOCUSATE SODIUM 100 MG CAP PO SCH ×2 (09:59→21:48)
[2016-06-22] MEDS: NYSTATIN SUSP 500,000 U/5 ML CUP SWISH-SWAL SCH ×3 (10:00→21:49)
--- NOTE | 2016-06-22 10:38 | HHI.PR ---
Subjective Remarks patient awake and alert, very interactive, seen with at bedside oriented x 3 "mal" pointing to abdomen- had chronic i abdominal discomfort per for 3 months on and off chronic dental pain-- multiple extraction done per family Objective Vitals Vital Signs Date Time Temp Pulse Resp B/P Pulse Ox O2 Delivery O2 Flow Rate FiO2 06/22/16 04:00 98.4 90 18 158/76 95 06/22/16 02:01 97 Room Air 06/22/16 00:00 99.1 75 18 150/81 95 06/21/16 20:45 88 06/21/16 20:00 98.4 82 18 145/79 97 06/21/16 16:00 98.4 70 18 180/87 93 06/21/16 12:00 98.3 62 20 166/85 95 I/O 06/21/16 06/21/16 06/21/16 06/22/16 06/22/16 06/22/16 07:00 15:00 23:00 07:00 15:00 23:00 Intake Total 120 ml 0 ml Output Total 675 ml 400 ml 200 ml Balance -555 ml -400 ml -200 ml Intake Oral 120 ml 0 ml Output Urine Total 675 ml 400 ml 200 ml # Voids 1 # Bowel Movements 2 1 0 Result Diagram: 06/20/16 0751 Imaging Last Impressions Brain MRI 06/16/16 0000 Signed Impressions: Service Date/Time: Thursday, June 16, 2016 10:35 - CONCLUSION: 1. Moderate chronic ischemic changes in the periventricular white matter. No recent infarct. No mass effect or shift. Sixto Johnston MD Chest X-Ray 06/15/16 0000 Signed Impressions: Service Date/Time: Wednesday, June 15, 2016 07:47 - CONCLUSION: Left lower lung infiltrate. Cricket Perez MD Renal Ultrasound 06/13/16 0000 Signed Impressions: Service Date/Time: Monday, June 13, 2016 21:21 - CONCLUSION: Mildly echogenic kidneys consistent with underlying medical renal disease. No obstruction. Jl Hernández Jr., MD Head CT 06/13/16 0000 Signed Impressions: Service Date/Time: Monday, June 13, 2016 03:29 - CONCLUSION: Normal examination for acute event. No hemorrhage or edema. Gab Baird MD Objective Remarks awake and alert, oriented to person and place muscle tone - relax anicteric no bruit lungs no rales or wheezes regular rhythm abdomen soft, nontender extremities no edema motor- moves all extremities - Date of Insertion: Jun 12, 2016 Date of Removal: Jun 18, 2016 A/P Assessment and Plan This is a 71-year-old male patient with past medical history which includes depression, BPH, hyperlipidemia, dementia, CAD status post coronary artery bypass graft admitted to psych unit for dementia and mood disorder, transferred to the hospital for acute renal failure and altered mental status. Sz disorder - Altered mental status -post ictal- -IMproved EEG showed possible epileptiform focus in the right central and right temporal area. CT scan of the head unremarkable, MRI negative on [facility] on Tegretol neurology ff. Acute kidney injury - pre renal component - improved Rhabdomyolysis due to SZ- resolved Hypokalemia - resolved Ultrasound of the kidney showed echogenic kidneys suggestive of medical renal disease. Nephrology following. Hypokalemia likely secondary to poor oral intake. Hold gabapentin. Underlying dementia with depression. on Tegretol Catatonia vs- improved ? post ictal on po Ativan - 0.5 mg po q8- decrease to 0.5 mg q 12 was transferred here from Psychiatry unit- service ff along with us Hospital-acquired pneumonia versus aspiration pneumonia-patient had an episode of desaturation, chest x-ray personally reviewed showed left lower lobe infiltrate. Keep on oxygen, start DuoNeb's on vancomycin and Zosyn- DC changed to po augmentin 1/8 Increase activity- out of bed Sinus tachycardia Hypertension increase BB to q 8. continue amlodipine Mood disorder- ? Catatonic appreciate Psychiatry ff along with us. doing well on Ativan 0.5 mg po q8 chrionic abdominal pain per patient and family get CT of abdomen x 6 months Protonix daily, Zofran Tums and simethicone as needed BLE pain consistent with neuropathy-h no complaints PT BPH, hyperlipidemia, CAD and dementia continue patient's home medications these appear stable Hypernatremia resolved - prophylaxis: lovenox, PPI PT/OT consult today/speech tehrapy d/w patient and - patient wants to go home- CM consult for DC planning Slava Yip MD Jun 22, 2016 10:38
[2016-06-22] MEDS: ACETAMINOPHEN 325 MG TAB PO PRN (15:20)
--- NOTE | 2016-06-22 16:05 | MG ---
cc: SATYA LYNNE M.D. Lab No: Date: Age: Sex: M Race: DATE OF 1945, 71 years old. ELECTROENCEPHALOGRAM NUMBER [id number] Yip. ROOM [id number] With photic stimulation, awake, drowsy asleep study. MRI showing white matter changes. No acute infarct. Last EEG 06/15/2016 showing some sharp activity in the right temporal region. Admitted with change in mental status. Not wanting to eat. CURRENT MEDICATIONS 1. Lacosamide. 2. Tegretol. 3. Augmentin. 4. Lopressor. 5. Norvasc. DESCRIPTION OF RECORD The patient has overall background slowing, seems to be asleep during the initial portion of the recording, predominantly of 5 Hz background. EKG looks sinus. There is some chewing artifact. No hyperventilation can be performed. Photic stimulation with a mild driving response. There is no evidence of any epileptic activity. IMPRESSION Mild slowing may be due to encephalopathy versus somnolent state. No evidence of any epileptiform features in this recording. Clinical correlation. MD AVIVA Chan/MARIE /3:33 PM /3:57 PM
--- NOTE | 2016-06-22 16:14 | RADRPT ---
EXAM DATE/TIME: 06/22/2016 14:38 [facility] COMPARISON: No previous studies available for comparison. INDICATIONS : Abdominal pain ORAL CONTRAST: No oral contrast ingested. RADIATION DOSE: 7.45 CTDIvol (mGy) MEDICAL HISTORY : Seizures. Cardiovascular disease Diabetes mellitus type 1. SURGICAL HISTORY : None. ENCOUNTER: Initial ACUITY: 1 day PAIN SCALE: 5/10 LOCATION: diffuse abdomen TECHNIQUE: Volumetric scanning of the abdomen and pelvis was performed. Using automated exposure control and ad justment of the mA and/or kV according to patient size, radiation dose was kept as low as reasonably achievable to obtain optimal diagnostic quality images. FINDINGS: LOWER LUNGS: The visualized lower lungs are clear. LIVER: Homogeneous density without lesion. There is no dilation of the biliary tree. No calcified gallston es. SPLEEN: Normal size without lesion. PANCREAS: Within normal limits. KIDNEYS: Normal in size and shape. There is no mass, stone, or hydronephrosis. ADRENAL GLANDS: Within normal limits. VASCULAR: There is evidence of an infrarenal abdominal aortic aneurysm measuring 3.6 cm transverse by 3.1 cm AP dimension. BOWEL/MESENTERY: Uncomplicated colonic diverticulosis is noted. The stomach, small bowel, and colon demonstrate no acu te abnormality. There is no free intraperitoneal air or fluid. ABDOMINAL WALL: Within normal limits. RETROPERITONEUM: There is no lymphadenopathy. BLADDER: No wall thickening or mass. REPRODUCTIVE: Radiation seed implants are noted within the prostate. INGUINAL: Small left inguinal hernia containing only fat is noted. MUSCULOSKELETAL: Sclerotic focus within the left humeral head which is indeterminate. Differential includes bone islan d or sclerotic metastasis. CONCLUSION: 1. Infrarenal abdominal aortic aneurysm measuring 3.6 cm transverse by 3.1 cm AP. 2. Uncomplicated colonic diverticulosis. 3. Left inguinal hernia containing only fat. 4. Sclerotic focus within the left humeral head which is indeterminate. Differential includes bone is land or sclerotic metastasis. Javier Sandoval MD on June 22, 2016 at 16:06 Board Certified Radiologist. This report was verified electronically.
--- NOTE | 2016-06-22 16:47 | HHI.PYPN ---
Subjective Remarks On psychiatric evaluation today patient is calm and cooperative, he is hypoactive, seems to be week, poor reports good mood, reports decided to go back home and continue his life, he denies depression, denies anxiety, denies perceptual disturbances, denies suicidal and homicidal ideation. As per , was at bedside, patient is a mental baseline at this moment. Objective Alert: Yes [place]: Person, Place, Date, Situation Mood: Calm Affect: Euthymic Memory Intact: Immediate, Remote Hallucinations: Other (non) Delusions: No Delusion Type: Other (none) Suicidal: Ideation (he denies) Homicidal: Ideation (he denies) Insight/Judgement Fair Vitals/IOs Vital Signs Date Time Temp Pulse Resp B/P Pulse Ox O2 Delivery O2 Flow Rate FiO2 06/22/16 12:08 98.0 77 24 166/95 95 06/22/16 09:00 Room Air 06/19/16 10:07 21 Intake and Output 06/21/16 06/21/16 06/22/16 08:00 16:00 00:00 Intake Total 120 ml Output Total 675 ml 400 ml Balance -555 ml -400 ml Assessment & Plan Problem List: (1) Mood disorder ICD Code: F39 (2) Dementia, senile with depression Assessment & Plan: On psychiatric evaluation the patient does not present any evidence depression, anxiety, priyanka or perceptual disturbances. Patient is oriented 3, no gross cognitive impairment observed. Patient denies suicidal or homicidal ideation. Patient denies visual and auditory hallucinations. Patient does not need any immediate psychiatric intervention. Family are interested in continue psychiatric care in outpatient basis. No psychotropics recommended. ICD Code: F03.90 Assessment & Plan Estimated LOS: days Justification for Cont. Inpt. Patient does not meet criteria for psychiatric admission at this moment. Daniel Feldman MD Jun 22, 2016 16:47
[2016-06-22] MEDS: ENOXAPARIN SODIUM 30 MG/0.3 ML SYRINGE SQ SCH (21:47)
[2016-06-22] MEDS: DONEPEZIL HCL 5 MG TAB PO SCH (21:47)
[2016-06-22] MEDS: ATORVASTATIN 40 MG TAB PO SCH (21:48)
[2016-06-22] MEDS: TAMSULOSIN HCL 0.4 MG CAP PO SCH (21:48)
[2016-06-23] VITALS: BP 154/84; PULSE 74; RESP 18; TEMP 98.3; O2SAT 95
[2016-06-23] MEDS: LACOSAMIDE INJ 50 MG in SODIUM CHLORIDE 0.9% INJ 100 ML IV SCH ×2 (03:50→16:00)
[2016-06-23 04:00] VITALS: BP 133/74; PULSE 71; RESP 18; TEMP 98.8; O2SAT 96
[2016-06-23] MEDS: AMOXICILLIN/CLAVULANATE K 500 MG TAB PO SCH ×2 (05:16→12:46)
[2016-06-23] MEDS: METOPROLOL TARTRATE 50 MG TAB PO SCH ×2 (05:16→12:47)
[2016-06-23 08:00] VITALS: BP 141/76; PULSE 72; PULSE 77; RESP 16; TEMP 97.8; O2SAT 93
[2016-06-23] MEDS: LORazepam 0.5 MG TAB PO SCH (09:14)
[2016-06-23] MEDS: DOCUSATE SODIUM 100 MG CAP PO SCH (09:14)
[2016-06-23] MEDS: PANTOPRAZOLE SOD 40 MG DELAYED RELEASE TAB PO SCH (09:14)
[2016-06-23] MEDS: carBAMazepine 200 MG TAB PO SCH ×2 (09:15→12:47)
[2016-06-23] MEDS: NYSTATIN SUSP 500,000 U/5 ML CUP SWISH-SWAL SCH ×2 (09:15→12:47)
[2016-06-23 12:00] VITALS: BP 155/81; PULSE 79; RESP 16; TEMP 97.5; O2SAT 94
[2016-06-23 16:00] VITALS: BP 146/72; PULSE 74; RESP 16; TEMP 97.8; O2SAT 94
--- NOTE | 2016-06-23 16:59 | HHI.PR ---
Subjective Remarks no complains ambulated with patient well along the hallways pleasant and cooperative Objective Vitals Vital Signs Date Time Temp Pulse Resp B/P Pulse Ox O2 Delivery O2 Flow Rate FiO2 06/23/16 12:00 97.5 79 16 155/81 94 06/23/16 08:00 77 06/23/16 08:00 96 Room Air 21 06/23/16 08:00 97.8 72 16 141/76 93 06/23/16 04:00 98.8 71 18 133/74 96 06/23/16 00:00 98.3 74 18 154/84 95 06/22/16 21:45 Room Air 06/22/16 20:00 98.6 82 18 140/85 94 06/22/16 19:28 67 I/O 06/22/16 06/22/16 06/22/16 06/23/16 06/23/16 06/23/16 07:00 15:00 23:00 07:00 15:00 23:00 Intake Total 0 ml 360 ml 120 ml 100 ml Output Total 200 ml 360 ml 100 ml Balance -200 ml 0 ml 120 ml 0 ml Intake Oral 0 ml 360 ml 120 ml 100 ml Output Urine Total 200 ml 360 ml 100 ml # Voids 1 1 # Bowel Movements 0 1 1 Result Diagram: 06/20/16 0751 Imaging Last Impressions Abdomen/Pelvis CT 06/22/16 0000 Signed Impressions: Service Date/Time: Wednesday, June 22, 2016 14:38 - CONCLUSION: 1. Infrarenal abdominal aortic aneurysm measuring 3.6 cm transverse by 3.1 cm AP. 2. Uncomplicated colonic diverticulosis. 3. Left inguinal hernia containing only fat. 4. Sclerotic focus within the left humeral head which is indeterminate. Differential includes bone island or sclerotic metastasis. Javier Sandoval MD Brain MRI 06/16/16 0000 Signed Impressions: Service Date/Time: Thursday, June 16, 2016 10:35 - CONCLUSION: 1. Moderate chronic ischemic changes in the periventricular white matter. No recent infarct. No mass effect or shift. Sixto Johnston MD Chest X-Ray 06/15/16 0000 Signed Impressions: Service Date/Time: Wednesday, June 15, 2016 07:47 - CONCLUSION: Left lower lung infiltrate. Cricket Perez MD Renal Ultrasound 06/13/16 0000 Signed Impressions: Service Date/Time: Monday, June 13, 2016 21:21 - CONCLUSION: Mildly echogenic kidneys consistent with underlying medical renal disease. No obstruction. Jl Hernández Jr., MD Head CT 06/13/16 0000 Signed Impressions: Service Date/Time: Monday, June 13, 2016 03:29 - CONCLUSION: Normal examination for acute event. No hemorrhage or edema. Gab Baird MD Objective Remarks awake and alert, oriented to person and place muscle tone - relax, no thrush anicteric no bruit lungs no rales or wheezes regular rhythm abdomen soft, nontender extremities no edema motor- moves all extremities - Date of Insertion: Jun 12, 2016 Date of Removal: Jun 18, 2016 A/P Assessment and Plan This is a 71-year-old male patient with past medical history which includes depression, BPH, hyperlipidemia, dementia, CAD status post coronary artery bypass graft admitted to psych unit for dementia and mood disorder, transferred to the hospital for acute renal failure and altered mental status. Sz disorder - Altered mental status -post ictal- -IMproved EEG showed possible epileptiform focus in the right central and right temporal area. CT scan of the head unremarkable, MRI negative on [facility] on Tegretol neurology ff. Acute kidney injury - pre renal component - improved Rhabdomyolysis due to SZ- resolved Hypokalemia - resolved Ultrasound of the kidney showed echogenic kidneys suggestive of medical renal disease. Nephrology following. Hypokalemia likely secondary to poor oral intake. Hold gabapentin. Underlying dementia with depression. on Tegretol Catatonia vs- improved ? post ictal decrease to 0.5 mg q 12 was transferred here from Psychiatry unit- service ff along with us- no need for inpatient psychiatry admission Hospital-acquired pneumonia versus aspiration pneumonia-patient had an episode of desaturation, chest x-ray personally reviewed showed left lower lobe infiltrate. Keep on oxygen prn, start DuoNeb's on vancomycin and Zosyn- DC changed to po augmentin / Increase activity- out of bed Sinus tachycardia Hypertension increase BB to q 8. continue amlodipine Mood disorder- ? Catatonic appreciate Psychiatry ff along with us. doing well on Ativan 0.5 mg po q8 chronic abdominal pain per patient and family CT of abdomen- negative- except for AAA 3.7 cm in size get CT of abdomen x 6 months Protonix daily, Zofran Tums and simethicone as needed BLE pain consistent with neuropathy-h no complaints PT BPH, hyperlipidemia, CAD and dementia continue patient's home medications these appear stable Hypernatremia resolved - prophylaxis: lovenox, PPI PT/OT today/speech therapy DC today if HHC arranged d/w patient and - patient wants to go home- CM consult for DC planning Slava Yip MD Jun 23, 2016 16:59
[2016-06-23] MEDS ORDERED: AUGM500T7 PO (17:35)
[2016-06-23] MEDS ORDERED: LACO50 PO (17:35)
[2016-06-23] MEDS ORDERED: LORA-392 PO (17:37)
[2016-06-23] MEDS ORDERED: METO-309 PO (17:37)
--- NOTE | 2016-06-23 17:43 | HHI.DS ---
Discharge Summary Admission Date Jun 12, 2016 at 15:10 Discharge Date: Jun 23, 2016 Admitting Diagnosis Seizure (1) Seizure ICD Code: R56.9 Diagnosis: Principal (2) Acute renal failure ICD Code: N17.9 Diagnosis: Principal Procedures none Brief History - From Admission This is a 71-year-old male patient with past medical history which includes depression, BPH, hyperlipidemia, dementia, CAD status post coronary artery bypass graft. Patient is able to speak some Yemeni but mostly speaks Bengali and a very poor historian. Initially admitted to psych unit for mood disorder and dementia. We were initially consulted for GI discomfort with nausea which has been going on for approximately 9 months to a year there is no change in this GI discomfort. Unremarkable findings. However today, patient had altered mental status, less responsive, blood work was done and showed acute renal failure. Per EMR charting, patient has not been eating in the last 3-4 days, has not been drinking. During that encounter, patient is awake, alert , response to noxious stimulus, positive response to visual threat. Not cooperative. Not in pain. Patient was then transferred to the hospital for further management. CBC/BMP: 06/20/16 0751 Imaging Last Impressions Abdomen/Pelvis CT 06/22/16 0000 Signed Impressions: Service Date/Time: Wednesday, June 22, 2016 14:38 - CONCLUSION: 1. Infrarenal abdominal aortic aneurysm measuring 3.6 cm transverse by 3.1 cm AP. 2. Uncomplicated colonic diverticulosis. 3. Left inguinal hernia containing only fat. 4. Sclerotic focus within the left humeral head which is indeterminate. Differential includes bone island or sclerotic metastasis. Javier Sandovla MD Brain MRI 06/16/16 0000 Signed Impressions: Service Date/Time: Thursday, June 16, 2016 10:35 - CONCLUSION: 1. Moderate chronic ischemic changes in the periventricular white matter. No recent infarct. No mass effect or shift. Sixto Johnston MD Chest X-Ray 06/15/16 0000 Signed Impressions: Service Date/Time: Wednesday, June 15, 2016 07:47 - CONCLUSION: Left lower lung infiltrate. Cricket Perez MD Renal Ultrasound 06/13/16 0000 Signed Impressions: Service Date/Time: Monday, June 13, 2016 21:21 - CONCLUSION: Mildly echogenic kidneys consistent with underlying medical renal disease. No obstruction. Jl Hernández Jr., MD Head CT 06/13/16 0000 Signed Impressions: Service Date/Time: Monday, June 13, 2016 03:29 - CONCLUSION: Normal examination for acute event. No hemorrhage or edema. Gab Baird MD PE at Discharge awake and alert, oriented to person and place muscle tone - relax, no thrush anicteric no bruit lungs no rales or wheezes regular rhythm abdomen soft, nontender extremities no edema motor- moves all extremities - Pt update on day of discharge awake n alert ambulating around oriented x 3, no complains Hospital Course This is a 71-year-old male patient with past medical history which includes depression, BPH, hyperlipidemia, dementia, CAD status post coronary artery bypass graft admitted to psych unit for dementia and mood disorder, transferred to the hospital for acute renal failure and altered mental status. Sz disorder - Altered mental status -post ictal- -IMproved EEG showed possible epileptiform focus in the right central and right temporal area. CT scan of the head unremarkable, MRI negative on Vimpat on Tegretol neurology ff. Acute kidney injury - pre renal component - improved Rhabdomyolysis due to SZ- resolved Hypokalemia - resolved Ultrasound of the kidney showed echogenic kidneys suggestive of medical renal disease. Nephrology following. Hypokalemia likely secondary to poor oral intake. Hold gabapentin. Underlying dementia with depression. on Tegretol Catatonia vs- improved ? post ictal decrease to 0.5 mg q 12 was transferred here from Psychiatry unit- service ff along with us- no need for inpatient psychiatry admission Hospital-acquired pneumonia versus aspiration pneumonia-patient had an episode of desaturation, chest x-ray personally reviewed showed left lower lobe infiltrate. Keep on oxygen prn, start DuoNeb's on vancomycin and Zosyn- DC changed to po augmentin 06/20 Increase activity- out of bed Sinus tachycardia Hypertension increase BB to q 8. continue amlodipine Mood disorder- ? Catatonic appreciate Psychiatry ff along with us. doing well on Ativan 0.5 mg po q8 chronic abdominal pain per patient and family CT of abdomen- negative- except for AAA 3.7 cm in size get CT of abdomen x 6 months Protonix daily, Zofran Tums and simethicone as needed BLE pain consistent with neuropathy-h no complaints PT BPH, hyperlipidemia, CAD and dementia continue patient's home medications these appear stable Hypernatremia resolved - prophylaxis: lovenox, PPI PT/OT today/speech therapy DC today if [facility] arranged d/w patient and - patient wants to go home- CM consult for DC planning Pt Condition on Discharge: Good Discharge Disposition: Disch w/ Home Health Serv Discharge Time: <= 30 minutes Discharge Instructions DIET: Follow Instructions for: Heart Healthy Diet Speech Therapy-Diet Recommends: Regular Activities you can perform: Weight Bearing as Ingrid Activities to Avoid: Prolonged Standing, Strenuous Activity Follow up Referrals: Neurology - 06/28/16 with [facility] PCP Follow-up - 06/28/16 with ANNE New Medications: Amoxicillin-Clavulanate (Augmentin) 500-125 mg Tab 500 MG PO Q8HR Infection #9 TAB Lacosamide (Vimpat) 50 Mg Tab 50 MG PO BID SZ #60 TAB Lorazepam (Ativan) 0.5 Mg Tab 0.5 MG PO Q12HR RAHUL #14 TAB Metoprolol Tartrate (Lopressor) 50 Mg Tab 50 MG PO Q8HR HTN #90 TAB Continued Medications: Amlodipine (Norvasc) 10 Mg Tab 10 MG PO DAILY blood pressure Days 30 Ref 0 TAB Atorvastatin (Atorvastatin) 40 Mg Tab 40 MG PO HS Cholesterol Management #30 Ref 0 TAB Carbamazepine (Carbamazepine) 200 Mg Tab 200 MG PO TID #60 Ref 0 TAB Donepezil (Donepezil) 10 Mg Tab 10 MG PO HS Dementia #30 Ref 0 TAB Gabapentin (Gabapentin) 100 Mg Cap 200 MG PO HS Health Days 0 Ref 0 CAP Pantoprazole (Pantoprazole) 40 Mg Tab 40 MG PO DAILY acid reflex Days 30 Ref 0 TAB Sertraline (Zoloft) 50 Mg Tab 50 MG PO HS Mental Health Days 0 Ref 0 TAB Tamsulosin (Tamsulosin) 0.4 Mg Cap 0.4 MG PO HS Manage Prostate Problems #30 Ref 0 CAP Discontinued Medications: Gabapentin (Gabapentin) 100 Mg Cap 100 MG PO BID Health Days 0 Ref 0 CAP Metoprolol Tartrate (Lopressor) 50 Mg Tab 50 MG PO Q12HR blood pressure Days 30 Ref 0 TAB Slava Yip MD Jun 23, 2016 17:43
--- NOTE | 2016-06-23 17:46 | HHI.FF ---
Face to Face Verification Diagnosis: (1) HTN (hypertension) (2) Dementia, senile with depression (3) Acute renal failure (4) Leg pain, bilateral Physical Therapy Order: Evaluate and Treat, Improve ambulation Occupational Therapy Order: Evaluate and Treat, Gross motor coordination Speech Therapy Order: To Improve: Speech and communication skills Home Health Nursing Order: Signs/symptoms of disease process Medication education-adverse effect Nursing assessment with vital signs Home Health Aide Order: To Assist In: environmental scientist and meal prep Layboy Tender Order: To Evaluate: Living conditions/environment, Support services I have seen patient Emanuel Buitrago on 06/23/16. My clinical findings support the need for the requested home health care services because: Ltd mobility - disease progression Deconditioned w/ increased weakness I certify that my clinical findings support that this patient is homebound because: Impaired cognitive ability/safety Need for psychosocial assistance Slava Yip MD Jun 23, 2016 17:46
[2016-06-24] MEDS ORDERED: LACOSAMIDE 50 MG TAB PO SCH (04:00)
== END 2016-06-23 19:30 | disposition home health service (06) | DRG 683 ==
LOC: HOCB 15:10 → HCVR 06-14 13:25 → N04B 06-16 14:45 → N04A 06-16 21:23
PROVIDERS: ADMIT Hospitalist; ATTEND Hospitalist
DX: N17.9 Acute kidney failure, unspecified (principal); I25.810 Atherosclerosis of coronary artery bypass graft(s) without angina pectoris; E87.0 Hyperosmolality and hypernatremia; M62.82 Rhabdomyolysis; G62.9 Polyneuropathy, unspecified; F03.90 Unspecified dementia, unspecified severity, without behavioral disturbance, psychotic disturbance, mood disturbance, and anxiety; E86.1 Hypovolemia; E78.5 Hyperlipidemia, unspecified; N40.0 Benign prostatic hyperplasia without lower urinary tract symptoms; Z95.1 Presence of aortocoronary bypass graft; I10 Essential (primary) hypertension; F32.9 Major depressive disorder, single episode, unspecified; E87.6 Hypokalemia; G89.29 Other chronic pain; I71.4 Abdominal aortic aneurysm, without rupture
CPT/HCPCS: 70450; 70553; 71010; 74176; 76775; 76937; 80048; 80053; 80156; 80202; 81001; 82140; 82550; 82552; 83880; 85025; 93005; 94640; 94664; 95819; A9579; C9254; J0360; J1630; J1650; J1940; J2060; J2543; J3370; J7030; J7050